=== PATIENT | male | born 1965 | race Caucasian/White ===

== ENCOUNTER → 2020-02-08 | Outpatient (CLI) | payer OTHER, SELFPAY ==
[2020-02-08 19:36] VITALS: BMI 36.5
[2020-02-08 21:23] LABS: Absolute Lymphocyte Count 2.88 X10^3/uL (0.83-4.51); Absolute Neutrophil Count 7.7 X10^3/uL (2.0-7.7); Basophil# 0.07 X10^3/uL; Basophil% 0.6 % (0-1); Eosinophil# 0.58 X10^3/uL; Eosinophils% 4.6 % (0-5); Hematocrit 54.4 % (40-54); Hemoglobin 17.8 g/dL (13.0-16.5); Lymphocyte # 2.88 X10^3/ul (4.0); Lymphocyte % 22.7 % (19-41); Mean Corp Hgb Conc 32.7 g/dL (32-36); Mean Corpuscular Volume 91.7 fL (80-94); Mean Platelet Vol. 10.7 fl (6.2-12.0); Monocyte# 1.44 X10^3/uL; Monocyte% 11.3 % (0-10); NRBC Flagged by Analyzer 0 % (0-5); Neutrophil # 7.68 X10^3/uL (2.7-7.7); Neutrophil % 60.4 % (47-70); Platelet Count 264 K/mm3 (150-450); RBC Distribution Width CV 13.7 % (11.6-14.6); Red Blood Count 5.93 M/mm3 (4.6-6.2); White Blood Count 12.7 K/mm3 (4.4-11.0)
[2020-02-08 21:45] LABS: ALB/GLOB Ratio 1.1 RATIO (0.9-2.4); AST(SGOT) 36 U/L (15-37); Alanine Aminotransfer ALT/SGPT 53 U/L (16-61); Albumin, Serum 4.2 g/dL (3.2-5.0); Alkaline Phosphatase 44 U/L (45-117); Anion Gap 5 (5-15); BUN 19 mg/dL (7-18); BUN/Creat Ratio 15.7 RATIO (10-20); Calcium,Total 9.3 mg/dL (8.5-10.1); Chloride 103 mmol/L (98-107); Cholesterol 132 mg/dL (200); Creatinine, Serum 1.21 mg/dL (0.70-1.30); EST Glomerular Filtration Rate 66 mL/min (>60); Est Glom Filt Rate - Afr Amer 80 mL/min (>60); Globulin 3.8 g/dL (2.2-4.2); Glucose 85 mg/dL (74-106); High Density Lipoprotein 44 mg/dL; Sodium Level 137 mmol/L (136-145); Triglycerides 136 mg/dL; Very Low Density Lipoprotein 27 mg/dL (5-40)
== END | disposition home or self-care (01) ==
PROVIDERS: PCP Nurse Practitioner; Referring Provider Nurse Practitioner; Visit Provider Nurse Practitioner
DX: I10 Essential (primary) hypertension (principal); E78.00 Pure hypercholesterolemia, unspecified
CPT/HCPCS: 80053; 80061; 85025

== ENCOUNTER → 2023-11-25 | Outpatient (CLI) | payer OTHER, SELFPAY ==
[2023-11-25 20:47] LABS: Absolute Lymphocyte Count 2.74 X10^3/uL (0.83-4.51); Absolute Neutrophil Count 4.8 X10^3/uL (2.0-7.7); Basophil# 0.09 X10^3/uL; Eosinophil# 0.35 X10^3/uL; Hematocrit 45.6 % (40-54); Hemoglobin 15.2 g/dL (13.0-16.5); Lymphocyte # 2.74 X10^3/ul (0.83-4.51); Lymphocyte % 31.4 % (19-41); Mean Corp Hgb Conc 33.3 g/dL (32-36); Mean Corpuscular Hgb 30.3 pg (27.0-32.0); Mean Platelet Vol. 11.3 fl (6.2-12.0); Monocyte# 0.76 X10^3/uL; Monocyte% 8.7 % (0-10); NRBC Flagged by Analyzer 0 % (0-5); Neutrophil # 4.75 X10^3/uL (2.7-7.7); Neutrophil % 54.6 % (47-70); Platelet Count 263 K/mm3 (150-450); RBC Distribution Width CV 13.1 % (11.6-14.6); RBC Distribution Width SD 43.3 fl (35.1-43.9); Red Blood Count 5.01 M/mm3 (4.6-6.2); White Blood Count 8.7 K/mm3 (4.4-11.0)
[2023-11-25 21:06] LABS: AST(SGOT) 34 U/L (15-37); Alanine Aminotransfer ALT/SGPT 56 U/L (16-61); Albumin, Serum 3.8 g/dL (3.2-5.0); Alkaline Phosphatase 52 U/L (45-117); Anion Gap 7 (5-15); BUN 14 mg/dL (7-18); BUN/Creat Ratio 13.6 RATIO (10-20); Calcium,Total 8.9 mg/dL (8.5-10.1); Chloride 108 mmol/L (98-107); Cholesterol 157 mg/dL (200); Creatinine, Serum 1.03 mg/dL (0.70-1.30); EST Glomerular Filtration Rate 79 mL/min (>60); Est Glom Filt Rate - Afr Amer 95 mL/min (>60); Globulin 3.7 g/dL (2.2-4.2); Glucose 129 mg/dL (74-106); High Density Lipoprotein 40 mg/dL; PSA,Total - Annual Screen 1.33 ng/mL (0.00-4.00); Protein, Total 7.5 g/dL (6.4-8.2); Sodium Level 141 mmol/L (136-145); Triglycerides 149 mg/dL; Very Low Density Lipoprotein 30 mg/dL (5-40)
== END | disposition home or self-care (01) ==
PROVIDERS: PCP Nurse Practitioner; Referring Provider Nurse Practitioner; Visit Provider Nurse Practitioner
DX: Z00.00 Encounter for general adult medical examination without abnormal findings (principal)
CPT/HCPCS: 80053; 80061; 84153; 85025; G0103

== ENCOUNTER → 2025-01-06 | Outpatient (CLI) | payer OTHER, SELFPAY ==
--- OUTSIDE RECORDS SUMMARY | 2025-01-06 22:33 | XMS RPT_ITS | CCD ---
Author Organization [facility] Inform ion Partnership [facility] Care Team Providers Care Site Supervisor Name Role Phone Vincent Muro MD Unavailable José Antonio Ramos Unavailable Unavailable Zan Herrera Unavailable Unavailable Zan Herrera Unavailable Unavailable Zan Herrera Primary Care Provider Zan Herrera MD Primary Care Provider PROVIDER, UNKNOWN Admitting Unavailable PROVIDER, UNKNOWN Attending Unavailable ZAN HERRERA Primary Care Unavailable Zan Herrera MD Primary Care Provider PROVIDER, UNKNOWN Attending Unavailable ZAN HERRERA Primary Care Unavailable Zan Herrera Primary Care Provider ANNE-MARIE LUJAN Referring Unavailable ZAN HERRERA Primary Care Unavailable Anne-Marie Lujan Attending Unavailable Anne-Marie Lujan Primary Care Unavailable Anne-Marie Lujan Referring Unavailable Zan Herrera MD Primary Care Provider Unavailable Primary Care Provider Unavaildashawn Lujan NP-Anne-Marie Lee Primary Care Provider Franco ABSTRACTER-CAnne-Marie Attending Provider Franco RODGERS-Anne-Marie Lee Referring Provider Medications Current Medications Medication Drug Class(es) Dates Sig (Normalized) Sig (Original) [id number] 200 actuat albuterol 0.09 mg/actuat metered dose inhaler (3 sources) beta2-Adrenergic Agonist Start: 02-08-2020 Albuterol Sulfate (Proair Hfa) 90 mcg/actuation HFA aerosol inhaler Active 2 NMA INHALATION EVERY 6 HOURS as needed February 08, 2020 12:00am Start: 09-05-2018 take 2 puff(s) by in halation every four hours as needed albuterol HFA (PROAIR HFA) 90 mcg/actuation inhaler Indications: Sinobronchitis Inhale 2 Puffs as instructed every 4 hours as needed. 1 Inhaler 0 09/05/2018 Active Start: 05-09-2015 PROAIR HFA 108 (90 BASE) MCG/ACT inhaler every 4 hours as needed 0 05/09/2015 Active amoxicillin 875 mg / clavulanate 125 mg oral tablet (4 sources) Penicillin-class Antibacterial Start: 10-05-2024 Amoxicillin-Pot Clavulanate 875-125 mg tablet Active 1 {tbl} PO TWICE A DAY October 05, 2024 12:00am Start: 12-19-2021 take 1 tablet by billie th twice daily amoxicillin-clavulanate (Augmentin) 875-125 MG per tablet Indications: Cellulitis of left eyelid Take 1 Tablet by mouth 2 times daily. 20 Tablet 12/19/2021 Active benzonatate 200 mg oral capsule (1 source) Non-narcotic Antitussive Start: 09-22-2018 take 1 capsule by mouth three times daily as needed for cough Benzonatate 200 mg capsule Indications: Bronchitis Take 1 capsule by mouth three times daily as needed for Cough. 30 capsule 0 09/22/2018 Active fluticasone propionate 0.05 mg/actuat metered dose nasal spray (6 sources) Corticosteroid Start: 11-25-2023 Fluticasone Propionate 50 mcg/actuation spray,suspension Active 1 NMA INTRANASAL TWICE A DAY November 25, 2023 12:00am administer into each nostril Start: 07-25-2021 take 1 spray(s) nasa l route once daily fluticasone (FLONASE) 50 mcg/act nasal inhaler Use 1 [place] in each nostril daily. 16 g 3 07/25/2021 Active Start: 07-07-2019 End: 10-05-2019 fluticasone (FLONASE) 50 MCG /ACT nasal spray 1 spray by Nasal route daily 3 Bottle 13 07/07/2019 10/05/2019 Active gentamicin 3 mg/ml ophthalmic solution (3 sources) Start: 12-19-2021 take 1 drop(s) into the eye(s) every four hours gentamicin (GARAMYCIN) 0.3 % ophthalmic solution Indications: Cellulitis of left eyelid Place 1 Drop in the left eye every 4 hours. 1 mL 12/19/2021 Active hydroCHLOROthiazide 12.5 mg oral tablet (8 sources) Thiazide Diuretic Start: 02-08-2020 End: 03-07-2021 take 1 tablet by mouth once daily Hydrochlorothiazide 12.5 mg tablet Active 0 .ROUTE .COMPLEX March 07, 2021 8:27pm TAKE 1 TABLET BY MOUTH EVERY DAY Start: 05-25-2019 take 1 tablet by billie th once daily in the morning hydrochlorothiazide (HYDRODIURIL) 12.5 MG tablet Take 1 tablet by mouth every morning 90 tablet 1 05/25/2019 Active hydroCHLOROthiazide 12.5 mg / losartan potassium 100 mg oral tablet (8 sources) Thiazide Diuretic, Angiotensin 2 Receptor Tomasa Start: 04-08-2023 take 1 tablet by mouth once daily losartan-hydrochlorothiazide (HYZAAR) 100-12.5 MG per tablet TAKE 1 TABLET BY MOUTH EVERY DAY 90 Tablet 3 04/08/2023 Active Start: 02-28-2021 End: 03-07-2022 take 1 tablet by mouth once daily losartan-hydrochlorothiazide (HYZAAR) 100-12.5 MG per tablet TAKE 1 TABLET BY MOUTH EVERY DAY 90 Tablet 3 03/07/2022 Active Start: 04-26-2019 take 1 tablet by billie th once daily losartan-hydrochlorothiazide (HYZAAR) 100-12.5 MG per tablet Take 1 tablet by mouth daily 90 tablet 3 04/26/2019 Active Start: 07-29-2016 LOSARTAN POTAS SIUM-HCTZ 50-12.5 MG TABS takes 1 tablet once daily LOSARTAN POTASSIUM-HCTZ [id number] Angle Callejas LPN Start: 06-18-2016 take 1 tablet by billie th once daily losartan-hydrochlorothiazide (HYZAAR) 10 0-25 mg per tablet Take 1 tablet by mouth once daily. 0 06/18/2016 Active ibuprofen 600 mg oral tablet (1 source) Nonsteroidal Anti-inflammatory Drug Start: 01-20-2018 take 1 tablet by mouth every six hours as needed for pain ibuprofen (IBU) 600 MG tablet Take 1 tablet by mouth every 6 hours as needed for Pain 30 tablet 0 01/20/2018 Active losartan potassium 100 mg oral tablet (8 sources) Angiotensin 2 Receptor Tomasa Start: 02-08-2020 End: 03-07-2021 take 1 tablet by mouth once daily Losartan 100 mg tablet Active 0 .ROUTE .COMPLEX March 07, 2021 8:25pm TAKE 1 TABLET BY MOUTH EVERY DAY Start: 05-25-2019 take 1 tablet by billie once daily losartan (COZAAR) 100 MG tablet Take 1 tablet by mouth daily 90 tablet 1 05/25/2019 Active metFORMIN hydrochloride 500 mg oral tablet (1 source) Biguanide Start: 04-23-2018 take 1 tablet by mouth twice daily at mealtime metFORMIN (GLUCOPHAGE) 500 MG tablet Take 1 tablet by mouth 2 times daily (with meals) 180 tablet 3 04/23/2018 Active 24 hr metoprolol succinate 50 mg extended release oral tablet (1 source) beta-Adrenergic Tomasa Start: 11-25-2023 take 1 tablet by mouth once daily Metoprolol Succinate 50 mg tablet extended release 24 hr Active 50 mg PO daily November 25, 2023 12:00am testosterone undecanoate 237 mg oral capsule (4 sources) Androgen Start: 09-19-2020 take 1 capsule by mouth twice daily Testosterone Undecanoate (Jatenzo) 237 MG CAPS Indications: Hypogonadism male Take 237 mg by mouth 2 times daily. 60 Capsule 5 09/19/2020 Active Completed/Discontinued Medications Medication Drug Class(es) Dates Sig (Normalized) Sig (Original) bacitracin 0.5 unt/mg ophthalmic ointment (1 source) Start: 12-19-2020 End: 08-01-2022 Bacitracin 500 unit/gram ointment Discontinued 0.25 [in_us] OPHTHALMIC Q12H 3.5 December 19, 2020 12:00am August 01, 2022 7:40pm cefuroxime 500 mg oral tablet (1 source) Cephalosporin Antibacterial Start: 08-01-2022 End: 11-25-2023 take 1 tablet by mouth twice daily Cefuroxime Axetil 500 mg tablet Discontinued 500 mg PO TWICE A DAY August 01, 2022 12:00am November 25, 2023 4:49pm dapagliflozin 10 mg oral tablet (1 source) Sodium-Glucose Cotransporter 2 Inhibitor Start: 03-07-2020 End: 12-05-2020 take 1 tablet by mouth once daily in the morning Dapagliflozin Propanediol (Farxiga) 10 mg tablet Discontinued 10 mg PO EVERY MORNING March 07, 2020 1:00am December 05, 2020 7:48pm erythromycin 0.005 mg/mg ophthalmic ointment (1 source) Macrolide, Macrolide Antimicrobial Start: 12-05-2020 End: 08-01-2022 Erythromycin 5 mg/gram (0.5 %) ointment Discontinued 0.5 [in_us] OPHTHALMIC THREE TIMES A DAY 3.5 December 05, 2020 12:00am August 01, 2022 7:40pm linaclotide 0.072 mg oral capsule (3 sources) Guanylate Cyclase-C Agonist Start: 03-07-2020 End: 08-01-2022 take 1 capsule by mouth once daily Linaclotide (Linzess) 72 mcg capsule Discontinued 72 ug PO DAILY March 07, 2020 1:00am August 01, 2022 7:41pm Start: 02-08-2020 End: 02-08-2020 take 1 capsule by mouth once daily Linaclotide (Linzess) 145 mcg capsule Discontinued 145 ug PO DAILY February 08, 2020 7:45pm February 08, 2020 7:55pm [facility] [employer] (1 source) Start: 02-03-2017 OSTEO BI-FLEX JOINT SHIELD TABS once daily [facility] [employer] [id number] Vincent Muro MD NAPROXEN SODIUM TABS (1 source) Nonsteroidal Anti-inflammatory Drug Start: 07-03-2017 ALEVE TABS take 1 tablet as needed NAPROXEN SODIUM TABS [id number] Vincent Muro MD pimecrolimus 10 mg/ml topical cream (1 source) Calcineurin Inhibitor Immunosuppressant Start: 02-08-2020 End: 08-01-2022 Pimecrolimus (Elidel) 1 % cream Discontinued 1 NMA TOPICAL TWICE A DAY February 08, 2020 12:00am August 01, 2022 7:42pm terbinafine 250 mg oral tablet (2 sources) Allylamine Antifungal Start: 11-25-2023 End: 10-05-2024 take 1 tablet by mouth once daily Terbinafine Hcl 250 mg tablet Discontinued 250 mg PO DAILY November 25, 2023 4:52pm October 05, 2024 5:12pm triamcinolone acetonide 5 mg/ml topical cream (1 source) Corticosteroid Start: 02-08-2020 End: 08-01-2022 Triamcinolone Acetonide 0.5 % cream Discontinued 1 NMA TOPICAL TWICE A DAY February 08, 2020 12:00am August 01, 2022 7:42pm Problems Active Problems Problem Classification Problem Date Documented Date Episodic/Chronic Calculus of urinary tract (1 source) Calculus of ureter; Translations: [Ureteral stone] Onset: 10-07-2022 Episodic Diverticulosis and diverticulitis (1 source) Diverticulitis of large intestine without perforation or abscess without bleeding; Translations: [Sigmoid diverticulitis] Onset: 10-07-2022 Chronic Essential hypertension (7 sources) Hypertensive disorder; Translations: [Essential hypertension] Onset: 04-22-2016 07-29-2016 Chronic External Injury - Struck by; against (2 sources) Striking against or struck by other objects, initial encounter; Translations: [Striking against or struck by other objects, init encntr] Onset: 01-20-2018 Fracture of lower limb (2 sources) Nondisplaced unspecified fracture of right lesser toe(s), initial encounter for closed fracture; Translations: [Nondisplaced unsp fracture of right lesser toe(s), init] Onset: 01-20-2018 Episodic Inflammation; infection of eye (except that caused by tuberculosis or sexually transmitteddisease) (1 source) External hordeolum; Translations: [Hordeolum externum unspecified eye, unspecified eyelid] 12-19-2020 Episodic Other connective tissue disease (1 source) Impingement syndrome of right shoulder region; Translations: [Impingement syndrome of right shoulder] Onset: 07-01-2015 07-01-2015 Other diseases of kidney and ureters (1 source) Unspecified hydronephrosis; Translations: [Hydronephrosis, unspecified hydronephrosis type] Onset: 10-07-2022 Episodic Other endocrine disorders (2 sources) Testicular hypofunction; Translations: [Testicular hypofunction] Onset: 01-20-2018 Chronic Other endocrine disorders (4 sources) Male hypogonadism; Translations: [Testicular hypofunction] Onset: 07-01-2015 07-01-2015 Chronic Other endocrine disorders (1 source) Other testicular hypofunction Onset: 07-01-2015 09-13-2020 Chronic Other eye disorders (1 source) Chalazion of right upper eyelid; Translations: [Chalazion right upper eyelid] 12-19-2020 Episodic Other injuries and conditions due to external causes (2 sources) Unspecified injury of right foot, initial encounter; Translations: [Unspecified injury of right foot, initial encounter] Onset: 01-20-2018 Episodic Other lower respiratory disease (1 source) Shortness of breath; Translations: [Shortness of breath] Onset: 12-01-2023 Episodic Other lower respiratory disease (1 source) Dyspnea; Translations: [Shortness of breath] 11-25-2023 Episodic Other nutritional; endocrine; and metabolic disorders (1 source) Obesity; Translations: [Obesity, unspecified] Onset: 07-29-2016 07-29-2016 Chronic Other upper respiratory infections (2 sources) Acute maxillary sinusitis; Translations: [Acute maxillary sinusitis, unspecified] 08-01-2022 Episodic Unclassified (6 sources) History of repair of musculotendinous cuff of shoulder; Translations: [History of arthroscopic procedure on shoulder] Onset: 03-20-2017 05-22-2017 Episodic Past or Other Problems Problem Classification Problem Date Documented Da te Episodic/Chronic Diabetes mellitus without complication (5 sources) Impaired fasting glycaemia; Translations: [Impaired fasting glucose] Onset: 07-01-2015 07-01-2015 Episodic Headache; including migraine (1 source) Tension-type headache; Translations: [Tension headache] Onset: 07-01-2015 07-01-2015 Episodic Other aftercare (5 sources) Patient encounter status; Translations: [Other outsole splicer (current) drug therapy] Onset: 09-13-2020 09-13-2020 Episodic Other aftercare (1 source) Long-term current use of drug therapy; Translations: [Other outsole splicer (current) drug therapy] Onset: 09-13-2020 09-13-2020 Episodic Other aftercare (1 source) Long-term (current) use of other medications Onset: 09-13-2020 09-13-2020 Episodic Other lower respiratory disease (2 sources) Chronic cough; Translations: [Chronic cough] Onset: 09-11-2015 04-22-2016 Episodic Other non-traumatic joint disorders (1 source) Impingement syndrome of shoulder region; Translations: [Impingement syndrome of left shoulder] Onset: 02-03-2017 02-03-2017 Episodic Other screening for suspected conditions (not mental disorders or infectious disease) (1 source) Screening for malignant neoplasms of prostate Onset: 09-13-2020 09-13-2020 Episodic Sprains and strains (1 source) Glenoid labrum tear; Translations: [Other articular cartilage disorders, unspecified shoulder] Onset: 08-19-2016 08-19-2016 Episodic Unclassified (1 source) Problem Unclassified (1 source) Patient encounter status; Translations: [Screening for malignant neoplasm of prostate] Onset: 04-23-2018 Resolved: 05-23-2018 05-23-2018 Unclassified (1 source) L shoulder torn labrum 12-04-2021 Results Test Name Value Interpretation Reference Range Facility XR CHEST 2V FRONTAL/LATon XR CHEST 2V FRONTAL/LAT * * *Final Report* * * DATE OF EXAM: Dec 01 2023 12:14PM LDX 5291 - XR CHEST 2V FRONTAL/LAT / PROCEDURE REASON: R06.02 Cough * * * * Physician Interpretation * * * * EXAMINATION: CHEST RADIOGRAPH (2 VIEW FRONTAL and LATERAL) CLINICAL HISTORY: Cough MQ: XC2_6 EXAM DATE/TIME: 12/01/2023 12:14 PM COMPARISON: No relevant prior studies available. RESULT: Lines, tubes, and devices: None. Lungs and pleura: No consolidation. No lung mass. No pleural effusion. No pneumothorax. Cardiomediastinal silhouette: Normal cardiomediastinal silhouette. Bones and soft tissues: Unremarkable. IMPRESSION: No acute radiographic abnormality. Delinquent Tax Collector: SHAMA Transcribe Date/Time: Dec 01 2023 1:16P Dictated by : JIM ROCHA MD This examination was interpreted and the report reviewed and electronically signed by: JIM ROCHA MD on Dec 01 2023 1:16PM EST [id number] Normal [facility] XR Chest PA and Lateralon IMPRESSION: No acute radiographic abnormality. Delinquent Tax Collector: PSCJemal Transcribe Date/Time: Dec 01 2023 1:16P Dictated by : JIM ROCHA MD This examination was interpreted and the report reviewed and electronically signed by: JIM ROCHA MD on Dec 01 2023 1:16PM EST [facility] * * *Final Report* * * DATE OF EXAM: Dec 01 2023 12:14PM LDX 5291 - XR CHEST 2V FRONTAL/LAT / PROCEDURE REASON: R06.02 Cough * * * * Physician Interpretation * * * * EXAMINATION: CHEST RADIOGRAPH (2 VIEW FRONTAL & LATERAL) CLINICAL HISTORY: Cough MQ: XC2_6 EXAM DATE/TIME: 12/01/2023 12:14 PM COMPARISON: No relevant prior studies available. RESULT: Lines, tubes, and devices: None. Lungs and pleura: No consolidation. No lung mass. No pleural effusion. No pneumothorax. Cardiomediastinal silhouette: Normal cardiomediastinal silhouette. Bones and soft tissues: Unremarkable. [facility] Provider, [facility] - 12/01/2023 * * *Final Report* * * DATE OF EXAM: Dec 01 2023 12:14PM LDX 5291 - XR CHEST 2V FRONTAL/LAT / PROCEDURE REASON: R06.02 Cough * * * * Physician Interpretation * * * * EXAMINATION: CHEST RADIOGRAPH (2 VIEW FRONTAL & LATERAL) CLINICAL HISTORY: Cough MQ: XC2_6 EXAM DATE/TIME: 12/01/2023 12:14 PM COMPARISON: No relevant prior studies available. RESULT: Lines, tubes, and devices: None. Lungs and pleura: No consolidation. No lung mass. No pleural effusion. No pneumothorax. Cardiomediastinal silhouette: Normal cardiomediastinal silhouette. Bones and soft tissues: Unremarkable. IMPRESSION IMPRESSION: No acute radiographic abnormality. Delinquent Tax Collector: PSCB Transcribe Date/Time: Dec 01 2023 1:16P Dictated by : JIM ROCHA MD This examination was interpreted and the report reviewed and electronically signed by: JIM ROCHA MD on Dec 01 2023 1:16PM EST [facility] Radiology Study observation (narrative) [facility] XR Chest PA and LateralOrder ed By: Ccf Provider on 12-01-2023 [facility] CBC W/Diff, Automatedon 11-03 Absolute Lymph 2.74 X10 3/uL Normal 0.83-4.51 [facility] Comment on above: Performed By: #### L 500.4050, L501.9910, L500.4100, L100.0100 #### [facility] [address] [place], [address] Absolute Neut 4.8 X10 3/uL Normal 2.0-7.7 [facility] Comment on above: Performed By: #### L 500.4050, L501.9910, L500.4100, L100.0100 #### [facility] [address] [place], [address] Basophils/100 WBC (Bld) 1.0 % Normal 0-1 [facility] Comment on above: Performed By: #### L 500.4050, L501.9910, L500.4100, L100.0100 #### [facility] [address] [place], [address] Eosinophils/100 WBC (Bld) 4.0 % Normal 0-5 [facility] Comment on above: Performed By: #### L 500.4050, L501.9910, L500.4100, L100.0100 #### [facility] [address] [place], [address] Erythrocyte distribution width (RBC) [Ratio] 13.1 % Normal 11.6-14.6 [facility] Comment on above: Performed By: #### L 500.4050, L501.9910, L500.4100, L100.0100 #### [facility] [address] [place], [address] Hematocrit (Bld) [Volume fraction] 45.6 % Normal 40-54 [facility] Comment on above: Performed By: #### L 500.4050, L501.9910, L500.4100, L100.0100 #### [facility] [address] [place], [address] Hemoglobin (Bld) [Mass/Vol] 15.2 g/dL Normal 13.0-16.5 [facility] Comment on above: Performed By: #### L 500.4050, L501.9910, L500.4100, L100.0100 #### [facility] [address] [place], [address] IG% 0.300 Normal 0.0-0.9 [facility] Comment on above: Result Comment: IG% - Immature Granulocytes (promyelocytes, myelocytes and metamyelocytes) > 1% indicates that a LEFT SHIFT is Present. Performed By: #### L 500.4050, L501.9910, L500.4100, L100.0100 #### [facility] [address] [place], [address] Lymphocytes/100 WBC (Bld) 31.4 % Normal 19-41 [facility] Comment on above: Performed By: #### L 500.4050, L501.9910, L500.4100, L100.0100 #### [facility] [address] [place], [address] MCH (RBC) [Entitic mass] 30.3 pg Normal 27.0-32.0 [facility] Comment on above: Performed By: #### L 500.4050, L501.9910, L500.4100, L100.0100 #### [facility] [address] [place], [address] MCHC (RBC) [Mass/Vol] 33.3 g/dL Normal 32-36 [facility] Comment on above: Performed By: #### L 500.4050, L501.9910, L500.4100, L100.0100 #### [facility] [address] [place], [address] MCV (RBC) [Entitic vol] 91.0 fL Normal 80-94 [facility] Comment on above: Performed By: #### L 500.4050, L501.9910, L500.4100, L100.0100 #### [facility] [address] [place], [address] Monocytes/100 WBC (Bld) 8.7 % Normal 0-10 [facility] Comment on above: Performed By: #### L 500.4050, L501.9910, L500.4100, L100.0100 #### [facility] [address] [place], [address] Neutrophils/100 WBC (Bld) 54.6 % Normal 47-70 [facility] Comment on above: Performed By: #### L 500.4050, L501.9910, L500.4100, L100.0100 #### [facility] [address] [place], [address] Nucleated RBC (Bld) [#/Vol] 0 10*3/uL Normal 0-5 [facility] Comment on above: Performed By: #### L 500.4050, L501.9910, L500.4100, L100.0100 #### [facility] [address] [place], [address] Platelet mean volume (Bld) [Entitic vol] 11.3 fL Normal 6.2-12.0 [facility] Comment on above: Performed By: #### L 500.4050, L501.9910, L500.4100, L100.0100 #### [facility] [address] [place], [address] Platelets (Bld) [#/Vol] 263 10*3/uL Normal 150-450 [facility] Comment on above: Performed By: #### L 500.4050, L501.9910, L500.4100, L100.0100 #### [facility] [address] [place], [address] RBC (Bld) [#/Vol] 5.01 10*6/uL Normal 4.6-6.2 [facility] Comment on above: Performed By: #### L 500.4050, L501.9910, L500.4100, L100.0100 #### [facility] [address] [place], [address] RDW SD 43.3 fl Normal 35.1-43.9 [facility] Comment on above: Performed By: #### L 500.4050, L501.9910, L500.4100, L100.0100 #### [facility] [address] [place], [address] WBC (Bld) [#/Vol] 8.7 10*3/uL Normal 4.4-11.0 [facility] Comment on above: Performed By: #### L 500.4050, L501.9910, L500.4100, L100.0100 #### [facility] [address] [place], [address] Comprehensive Metabolic [facility] 11-25-2023 Albumin [Mass/Vol] 3.8 g/dL Normal 3.2-5.0 [facility] Comment on above: Performed By: #### L 500.4050, L501.9910, L500.4100, L100.0100 #### [facility] [address] [place], [address] Albumin/Globulin [Mass ratio] 1.0 {ratio} Normal 0.9-2.4 [facility] Comment on above: Performed By: #### L 500.4050, L501.9910, L500.4100, L100.0100 #### [facility] [address] [place], [address] ALK P 52 U/L Normal 45-117 [facility] Comment on above: Performed By: #### L 500.4050, L501.9910, L500.4100, L100.0100 #### [facility] [address] [place], [address] ALT [Catalytic activity/Vol] 56 U/L Normal 16-61 [facility] Comment on above: Performed By: #### L 500.4050, L501.9910, L500.4100, L100.0100 #### [facility] [address] [place], [address] AST [Catalytic activity/Vol] 34 U/L Normal 15-37 [facility] Comment on above: Performed By: #### L 500.4050, L501.9910, L500.4100, L100.0100 #### [facility] [address] [place], [address] Bilirubin [Mass/Vol] 0.40 mg/dL Normal 0.20-1.00 [facility] Comment on above: Result Comment: For patients on eltrombopag therapy, use of Dimension [place] TBIL is not recommended. Performed By: #### L 500.4050, L501.9910, L500.4100, L100.0100 #### [facility] [address] [place], [address] BUN/CRE 13.6 RATIO Normal 10-20 [facility] Comment on above: Performed By: #### L 500.4050, L501.9910, L500.4100, L100.0100 #### [facility] [address] [place], [address] CA,Total 8.9 mg/dL Normal 8.5-10.1 [facility] Comment on above: Performed By: #### L 500.4050, L501.9910, L500.4100, L100.0100 #### [facility] [address] [place], [address] Chloride [Moles/Vol] 108 mmol/L High 98-107 [facility] Comment on above: Performed By: #### L 500.4050, L501.9910, L500.4100, L100.0100 #### [facility] [address] [place], [address] CO2 [Moles/Vol] 26.0 mmol/L Normal 21.0-32.0 [facility] Comment on above: Performed By: #### L 500.4050, L501.9910, L500.4100, L100.0100 #### [facility] [address] [place], [address] Creatinine [Mass/Vol] 1.03 mg/dL Normal 0.70-1.30 [facility] Comment on above: Result Comment: The validity of the calculated GFR GFRAA in patients over 70 years has not been determined. Clinical correlation is essential. Performed By: #### L 500.4050, L501.9910, L500.4100, L100.0100 #### [facility] [address] [place], [address] EST GFR - AA 95 mL/min Normal >60 [facility] Comment on above: Result Comment: Afri can [place] GFR Calc Performed By: #### L 500.4050, L501.9910, L500.4100, L100.0100 #### [facility] [address] [place], [address] GAP 7 Normal 5-15 [facility] Comment on above: Performed By: #### L 500.4050, L501.9910, L500.4100, L100.0100 #### [facility] [address] [place], [address] GFR/1.73 sq M.predicted among non-blacks MDRD (S/P/Bld) [Vol rate/Area] 79 mL/min/{1.73_m2} Normal >60 [facility] Comment on above: Result Comment: Non- GFR Calc Performed By: #### L 500.4050, L501.9910, L500.4100, L100.0100 #### [facility] [address] [place], [address] Globulin (S) [Mass/Vol] 3.7 g/dL Normal 2.2-4.2 [facility] Comment on above: Performed By: #### L 500.4050, L501.9910, L500.4100, L100.0100 #### [facility] [address] [place], [address] Glucose [Mass/Vol] 129 mg/dL High 74-106 [facility] Comment on above: Result Comment: Fast ing Glucose result greater than or equal to 126 mg/dL suggests DIABETES MELLITUS per A.D.A. criteria. Performed By: #### L 500.4050, L501.9910, L500.4100, L100.0100 #### [facility] [address] [place], [address] Potassium [Moles/Vol] 4.0 mmol/L Normal 3.5-5.1 [facility] Comment on above: Performed By: #### L 500.4050, L501.9910, L500.4100, L100.0100 #### [facility] [address] [place], [address] Sodium [Moles/Vol] 141 mmol/L Normal 136-145 [facility] Comment on above: Performed By: #### L 500.4050, L501.9910, L500.4100, L100.0100 #### [facility] [address] [place], [address] T PROT 7.5 g/dL Normal 6.4-8.2 [facility] Comment on above: Performed By: #### L 500.4050, L501.9910, L500.4100, L100.0100 #### [facility] [address] [place], [address] Urea nitrogen [Mass/Vol] 14 mg/dL Normal 7-18 [facility] Comment on above: Performed By: #### L 500.4050, L501.9910, L500.4100, L100.0100 #### [facility] [address] [place], [address] Lipid Profileon 11-25-2023 Cholesterol [Mass/Vol] 157 mg/dL Normal 200 [facility] Comment on above: Result Comment: <200 mg/dL Desirable 200-240 mg/dL Borderline >240 mg/dL High Risk Performed By: #### L 500.4050, L501.9910, L500.4100, L100.0100 #### [facility] [address] [place], [address] Cholesterol in HDL [Mass/Vol] 40 mg/dL Normal [facility] Comment on above: Result Comment: The drugs N-Acetylcysteine and Metamizole may falsely depress this assay. Reference Range HDL <40 mg/dL Low HDL Cholesterol HDL >or= 60 mg/dL High HDL Cholesterol Performed By: #### L 500.4050, L501.9910, L500.4100, L100.0100 #### [facility] [address] [place], [address] Cholesterol in LDL [Mass/Vol] 87 mg/dL Normal 0-130 [facility] Comment on above: Performed By: #### L 500.4050, L501.9910, L500.4100, L100.0100 #### [facility] [address] [place], [address] Cholesterol in VLDL [Mass/Vol] 30 mg/dL Normal 5-40 [facility] Comment on above: Performed By: #### L 500.4050, L501.9910, L500.4100, L100.0100 #### [facility] [address] [place], [address] Triglyceride [Mass/Vol] 149 mg/dL Normal [facility] Comment on above: Result Comment: The drugs N-Acetylcysteine and Metamizole may falsely depress this assay. Serum Triglycerides Reference Interval Normal <150 mg/dL Borderline high 150 - 199 mg/dL High 200 - 499 mg/dL Very High > or = 500 mg/dL Performed By: #### L 500.4050, L501.9910, L500.4100, L100.0100 #### [facility] [address] [place], [place], [address] PSA,Total - Annual Screenon 11-25-2023 PSA,TOT SCREEN 1.33 ng/mL Normal 0.00-4.00 [facility] Comment on above: Result Comment: This test was performed using the TPSA assay method for the [employer] chemistry system. Values obtained with different assay methods cannot be used interchangably. When changing PSA assays in the course of monitoring a patient, additional sequential testing should be carried out to confirm baseline values. Performed By: #### L 500.4050, L501.9910, L500.4100, L100.0100 #### [facility] [address] [place], [place], [address] ALLIED HEALTHon 10-07-2022 [facility] O ID: [id number] Author: RAUL August Service: Radiology Author Type: Technologist Type: Allied Health Filed: 10/07/2022 12:20 PM Note Text: Radiology Service Progress Note PATIENT NAME: Zan Villeda DATE OF SERVICE: October 07, 2022 TIME: 12:20 PM PATIENT IDENTITY VERIFICATION COMPLETED USING TWO (2) IDENTIFIERS: Name and Date of confirmed by patient verbally and Name and Date of confirmed by identification band. FALL SCREENING: Has the patient had 2 falls in the last year or 1 fall with injury or currently using an Ambulatory Assistive Device (Walker, Cane, Wheelchair, Crutches, etc.)? Emergency Room Patient: Screened in ED PATIENT GENDER DATA: Male PATIENT RELEVANT IMPLANT DATA REVIEWED: Yes RADIOLOGY DEPARTMENT: CT; Exam(s) Completed: Abdomen/Pelvis PERIPHERAL IV DATA: Inpatient: see LDA documentation SIGNED BY: RAUL August October 07, 2022 12:20 PM Normal [facility] CBC W Auto Differential pane l (Bld)on 10-07-2022 Basophils (Bld) [#/Vol] 0.05 10*3/uL Normal <0.11 [facility] Comment on above: Order Comment: Speci men Type: BLOOD SPECIMEN Ordering Facility: [facility] Address: [address] [address] Performed By: #### 5 7021-8 #### [facility] CLIA [id number] [address] [place] [address] [place] Basophils/100 WBC (Bld) 0.5 % Normal [facility] Comment on above: Order Comment: Speci men Type: BLOOD SPECIMEN Ordering Facility: [facility] Address: [address] [place] [address] Performed By: #### 5 7021-8 #### [facility] CLIA [id number] [address] [place] Differential cell count method Nom (Bld) Auto Normal [facility] Comment on above: Order Comment: Speci men Type: BLOOD SPECIMEN Ordering Facility: [facility] Address: [address] [address] Performed By: #### 5 7021-8 #### [facility] CLIA [id number] [address] [place] Eosinophils (Bld) [#/Vol] 0.07 10*3/uL Normal <0.46 [facility] Comment on above: Order Comment: Speci men Type: BLOOD SPECIMEN Ordering Facility: [facility] Address: [address] [address] Performed By: #### 5 7021-8 #### [facility] CLIA [id number] [address] Eosinophils/100 WBC (Bld) 0.7 % Normal [facility] Comment on above: Order Comment: Speci men Type: BLOOD SPECIMEN Ordering Facility: [facility] Address: [address] [address] Performed By: #### 5 7021-8 #### [facility] CLIA [id number] [address] Erythrocyte distribution width (RBC) [Ratio] 13.1 % Normal 11.5-15.0 [facility] Comment on above: Order Comment: Speci men Type: BLOOD SPECIMEN Ordering Facility: [facility] Address: [address] [address] Performed By: #### 5 7021-8 #### [facility] CLIA [id number] [address] Hematocrit (Bld) [Volume fraction] 43.5 % Normal 39.0-51.0 [facility] Comment on above: Order Comment: Speci men Type: BLOOD SPECIMEN Ordering Facility: [facility] Address: [address] [place] [address] Performed By: #### 5 7021-8 #### [facility] CLIA [id number] [address] [place] Hemoglobin (Bld) [Mass/Vol] 14.3 g/dL Normal 13.0-17.0 [facility] Comment on above: Order Comment: Speci men Type: BLOOD SPECIMEN Ordering Facility: [facility] Address: [address] [place] [address] Performed By: #### 5 7021-8 #### [facility] CLIA [id number] [address] Immature granulocytes (Bld) [#/Vol] 0.03 10*3/uL Normal <0.10 [facility] Comment on above: Order Comment: Speci men Type: BLOOD SPECIMEN Ordering Facility: [facility] Address: [address] [address] Performed By: #### 5 7021-8 #### [facility] CLIA [id number] [address] Immature granulocytes/100 WBC (Bld) 0.3 % Normal [facility] Comment on above: Order Comment: Speci men Type: BLOOD SPECIMEN Ordering Facility: [facility] Address: [address] [address] Performed By: #### 5 7021-8 #### [facility] CLIA [id number] [address] [place] Lymphocytes (Bld) [#/Vol] 1.30 10*3/uL Normal 1.00-4.00 [facility] Comment on above: Order Comment: Speci men Type: BLOOD SPECIMEN Ordering Facility: [facility] Address: [address] [address] Performed By: #### 5 7021-8 #### [facility] CLIA [id number] [address] Lymphocytes/100 WBC (Bld) 13.5 % Normal [facility] Comment on above: Order Comment: Speci men Type: BLOOD SPECIMEN Ordering Facility: [facility] Address: [address] [place] [address] Performed By: #### 5 7021-8 #### [facility] CLIA [id number] [address] MCH (RBC) [Entitic mass] 31.1 pg Normal 26.0-34.0 [facility] Comment on above: Order Comment: Speci men Type: BLOOD SPECIMEN Ordering Facility: [facility] Address: [address] [place] [address] Performed By: #### 5 7021-8 #### [facility] CLIA [id number] [address] MCHC (RBC) [Mass/Vol] 32.9 g/dL Normal 30.5-36.0 [facility] Comment on above: Order Comment: Speci men Type: BLOOD SPECIMEN Ordering Facility: [facility] Address: [address] [address] Performed By: #### 5 7021-8 #### [facility] CLIA [id number] [address] MCV (RBC) [Entitic vol] 94.6 fL Normal 80.0-100.0 [facility] Comment on above: Order Comment: Speci men Type: BLOOD SPECIMEN Ordering Facility: [facility] Address: [address] [place] [address] Performed By: #### 5 7021-8 #### [facility] CLIA [id number] [address] [place] [address] [place] Monocytes (Bld) [#/Vol] 0.54 10*3/uL Normal <0.87 [facility] Comment on above: Order Comment: Speci men Type: BLOOD SPECIMEN Ordering Facility: [facility] Address: [address] [address] Performed By: #### 5 7021-8 #### [facility] CLIA [id number] [address] [place] Monocytes/100 WBC (Bld) 5.6 % Normal [facility] Comment on above: Order Comment: Speci men Type: BLOOD SPECIMEN Ordering Facility: [facility] Address: [address] [place] [address] Performed By: #### 5 7021-8 #### [facility] CLIA [id number] [address] [place] [address] [place] Neutrophils (Bld) [#/Vol] 7.67 10*3/uL High 1.45-7.50 [facility] Comment on above: Order Comment: Speci men Type: BLOOD SPECIMEN Ordering Facility: [facility] Address: [address] [place] [address] Performed By: #### 5 7021-8 #### [facility] CLIA [id number] [address] [place] Neutrophils/100 WBC (Bld) 79.4 % Normal [facility] Comment on above: Order Comment: Speci men Type: BLOOD SPECIMEN Ordering Facility: [facility] Address: [address] [address] Performed By: #### 5 7021-8 #### [facility] CLIA [id number] [address] [place] Nucleated RBC (Bld) [#/Vol] 10*3/uL Normal <0.01 [facility] Comment on above: Order Comment: Speci men Type: BLOOD SPECIMEN Ordering Facility: [facility] Address: [address] [place] [address] Performed By: #### 5 7021-8 #### [facility] CLIA [id number] [address] [place] Nucleated RBC/100 WBC (Bld) [Ratio] 0.0 /100 WBC Normal [facility] Comment on above: Order Comment: Speci men Type: BLOOD SPECIMEN Ordering Facility: [facility] Address: [address] [place] [address] Performed By: #### 5 7021-8 #### [facility] CLIA [id number] [address] [place] Platelet mean volume (Bld) [Entitic vol] 10.4 fL Normal 9.0-12.7 [facility] Comment on above: Order Comment: Speci men Type: BLOOD SPECIMEN Ordering Facility: [facility] Address: [address] [place] [address] Performed By: #### 5 7021-8 #### [facility] CLIA [id number] [address] Platelets (Bld) [#/Vol] 220 10*3/uL Normal 150-400 [facility] Comment on above: Order Comment: Speci men Type: BLOOD SPECIMEN Ordering Facility: [facility] Address: [address] [place] [address] Performed By: #### 5 7021-8 #### [facility] CLIA [id number] [address] RBC (Bld) [#/Vol] 4.60 10*6/uL Normal 4.20-6.00 [facility] Comment on above: Order Comment: Speci men Type: BLOOD SPECIMEN Ordering Facility: [facility] Address: [address] [place] [address] Performed By: #### 5 7021-8 #### [facility] CLIA [id number] [address] WBC (Bld) [#/Vol] 9.66 10*3/uL Normal 3.70-11.00 [facility] Comment on above: Order Comment: Speci men Type: BLOOD SPECIMEN Ordering Facility: [facility] Address: [place] [address] Performed By: #### 5 7021-8 #### [facility] CLIA [id number] [address] [place] [address] [place] [address] ABD/PEL WO IVCONon 2022 CT ABD/PEL WO IVCON * * *Final Report* * * DATE OF EXAM: Oct 07 2022 12:19PM [facility] [place] CT ABD/PEL WO IVCON / PROCEDURE REASON: Flank pain, kidney stone suspected * * * * Physician Interpretation * * * * EXAMINATION: CT ABDOMEN AND PELVIS WITHOUT IV CONTRAST CLINICAL HISTORY: Flank pain, renal calculus suspected. TECHNIQUE: Non-IV contrast imaging of the abdomen and pelvis was performed using standard technique, scanning from just above the dome of the diaphragm to the symphysis pubis. Unenhanced imaging is limited for the evaluation of some intra-abdominal and pelvic pathology. MQ: CTAPWO_3 Contrast: IV: None : ml of CT Radiation dose: Integrated Dose-length product (DLP) for this visit = 640 mGy*cm. CT Dose Reduction Employed: Automated exposure control (AEC) COMPARISON: None. RESULT: Abdomen / Pelvis: Liver: Hepatic steatosis. Biliary: No biliary dilatation. Gallbladder is unremarkable. Spleen: No splenomegaly. Pancreas: Unremarkable. Adrenals: No mass. Kidneys: The 0.5 cm calculus is seen in the region of the mid right ureter, however this is not definitely within the ureter. There is right-sided hydronephrosis with surrounding inflammatory change. Findings may be related to obstruction, infectious process not excluded. Left kidney appears within normal limits. GI Tract: No bowel dilation. Colonic diverticulosis without inflammation surrounding the sigmoid: Suspicious for diverticulitis. Lymph Nodes: No lymphadenopathy. Mesentery/peritoneum: No ascites. Retroperitoneum: No mass. Vasculature: No abdominal aortic or iliac artery aneurysm. Pelvis: No mass or ascites. Bones/Soft Tissues: No acute abnormality. Lower thorax: Unremarkable. Real Estate Accountant (topogram) images: No additional findings. IMPRESSION: Diverticulitis of the sigmoid colon. Right renal hydronephrosis with surrounding inflammation. There is a 5 mm calculus in the region of the proximal to mid right ureter which appears to likely lie outside the ureter. Obstruction is not excluded. Infectious process considered. Clinical correlation is needed. Delinquent Tax Collector: PSCJemal Transcribe Date/Time: Oct 07 2022 12:26P Dictated by : LUI YOON MD This examination was interpreted and the report reviewed and electronically signed by: LUI YOON MD on Oct 07 2022 12:37PM EST [id number] Normal [facility] Comprehensive metabolic 2000 panelon 10-07-2022 Albumin [Mass/Vol] 4.0 g/dL Normal 3.9-4.9 [facility] Comment on above: Order Comment: Speci men Type: BLOOD SPECIMEN Ordering Facility: [facility] Address: [address] [place] [address] Performed By: #### 2 4323-8 #### [facility] CLIA [id number] [address] [place] [facility] ALP [Catalytic activity/Vol] 40 U/L Normal 38-113 [facility] Comment on above: Order Comment: Speci men Type: BLOOD SPECIMEN Ordering Facility: [facility] Address: [address] [address] Performed By: #### 2 4323-8 #### [facility] CLIA [id number] [address] ALT [Catalytic activity/Vol] 39 U/L Normal 10-54 [facility] Comment on above: Order Comment: Speci men Type: BLOOD SPECIMEN Ordering Facility: [facility] Address: [address] [place] [address] Performed By: #### 2 4323-8 #### [facility] CLIA [id number] [address] [place] [address] [place] [facility] Anion gap [Moles/Vol] 10 mmol/L Normal 9-18 [facility] Comment on above: Order Comment: Speci men Type: BLOOD SPECIMEN Ordering Facility: [facility] Address: [address] [address] Performed By: #### 2 4323-8 #### [facility] CLIA [id number] [address] [place] [address] [place] AST [Catalytic activity/Vol] 30 U/L Normal 14-40 [facility] Comment on above: Order Comment: Speci men Type: BLOOD SPECIMEN Ordering Facility: [facility] Address: [address] [place] [address] Performed By: #### 2 4323-8 #### [facility] CLIA [id number] [address] [place] [address] [place] Bilirubin [Mass/Vol] 0.5 mg/dL Normal 0.2-1.3 [facility] Comment on above: Order Comment: Speci men Type: BLOOD SPECIMEN Ordering Facility: [facility] Address: [address] [address] Performed By: #### 2 4323-8 #### [facility] CLIA [id number] [address] [place] [address] [place] Calcium [Mass/Vol] 9.2 mg/dL Normal 8.5-10.2 [facility] Comment on above: Order Comment: Speci men Type: BLOOD SPECIMEN Ordering Facility: [facility] Address: [address] [place] [address] Performed By: #### 2 4323-8 #### [facility] CLIA [id number] [address] [place] [address] [place] Chloride [Moles/Vol] 106 mmol/L High 97-105 [facility] Comment on above: Order Comment: Speci men Type: BLOOD SPECIMEN Ordering Facility: [facility] Address: [address] [place] [address] Performed By: #### 2 4323-8 #### [facility] CLIA [id number] [address] [place] [address] [place] CO2 [Moles/Vol] 27 mmol/L Normal 22-30 [facility] Comment on above: Order Comment: Speci men Type: BLOOD SPECIMEN Ordering Facility: [facility] Address: [address] [place] [address] Performed By: #### 2 4323-8 #### [facility] CLIA [id number] [address] [place] [address] [place] Creatinine [Mass/Vol] 1.05 mg/dL Normal 0.73-1.22 [facility] Comment on above: Order Comment: Renea amezcua Type: BLOOD SPECIMEN Ordering Facility: [facility] Address: [address] [place] [address] Performed By: #### 2 4323-8 #### [facility] CLIA [id number] [address] [place] ESTIMATED GLOMERULAR FILTRATION RATE 83 mL/min/1.73m??? Normal >=60 [facility] Comment on above: Order Comment: Renea amezcua Type: BLOOD SPECIMEN Ordering Facility: [facility] Address: [address] [place] [address] Result Comment: Rosa M mated Glomerular Filtration Rate (eGFR) is calculated using the 2020 CKD-EPI creatinine equation. This equation utilizes serum creatinine, sex, and age as parameters. The creatinine assay has traceable calibration to isotope dilution-mass spectrometry. Refer to KDIGO guidelines for clinical interpretation. In patients with unstable renal function, e.g. those with acute kidney injury, the eGFR may not accurately reflect actual GFR. Performed By: #### 2 4323-8 #### [facility] CLIA [id number] [address] [place] [address] [place] Glucose [Mass/Vol] 155 mg/dL High 74-99 [facility] Comment on above: Order Comment: Renea amezcua Type: BLOOD SPECIMEN Ordering Facility: [facility] Address: [address] [place] [address] Result Comment: The [place] Diabetes Association (ADA) provides guidance for cutoff values for fasting glucose and random glucose. The ADA defines fasting as no caloric intake for at least 8 hours. Fasting plasma glucose results between 100 to 125 mg/dL indicate increased risk for diabetes (prediabetes). Fasting plasma glucose results greater than or equal to 126 mg/dL meet the criteria for diagnosis of diabetes. In the absence of unequivocal hyperglycemia, results should be confirmed by repeat testing. In a patient with classic symptoms of hyperglycemia or hyperglycemic crisis, random plasma glucose results greater than or equal to 200 mg/dL meet the criteria for diagnosis of diabetes. Reference: Standards of Medical Care in Diabetes 2016, [place] [employer] Association. Diabetes Care. 2016.39(Suppl 1). Performed By: #### 2 4323-8 #### [facility] CLIA [id number] [address] Potassium [Moles/Vol] 4.5 mmol/L Normal 3.7-5.1 [facility] Comment on above: Order Comment: Speci men Type: BLOOD SPECIMEN Ordering Facility: [facility] Address: [address] [place] [address] Performed By: #### 2 4323-8 #### [facility] CLIA [id number] [address] [place] Protein [Mass/Vol] 6.6 g/dL Normal 6.3-8.0 [facility] Comment on above: Order Comment: Speci men Type: BLOOD SPECIMEN Ordering Facility: [facility] Address: [address] [place] [address] Performed By: #### 2 4323-8 #### [facility] CLIA [id number] [address] Sodium [Moles/Vol] 143 mmol/L Normal 136-144 [facility] Comment on above: Order Comment: Speci men Type: BLOOD SPECIMEN Ordering Facility: [facility] Address: [address] [place] [address] Performed By: #### 2 4323-8 #### [facility] CLIA [id number] [address] Urea nitrogen [Mass/Vol] 15 mg/dL Normal 9-24 [facility] Comment on above: Order Comment: Speci men Type: BLOOD SPECIMEN Ordering Facility: [facility] Address: [address] [place] [address] Performed By: #### 2 4323-8 #### [facility] CLIA [id number] [address] [place] ED NOTEon 10-07-2022 ED NOTE HNO ID: [id number] Author: Tito Morton RN Service: ? Author Type: Registered Nurse Type: ED Notes Filed: 10/07/2022 2:51 PM Note Text: Discharge instructions d/w pt at bedside. Stated understanding with no further questions for this nurse. Encouraged f/u with PCP and referring doctors given. Stated understanding. Prescription(S) were given X5. [facility] ED PROV NOTEon 10-07-2022 ED PROV NOTE HNO ID: [id number] Author: Eduardo Bob MD Service: ? Author Type: Physician Type: ED Provider Notes Filed: 10/07/2022 3:14 PM Note Text: ED Provider Note Patient Name: Zan Villeda : 1965 SERVICE DATE: 10/07/22 History Patient presents with: Flank Pain: right flank pain, non-radiating since this morning. Denies urinary difficulties Zan Villeda presents with sudden onset of right flank pain this morning. He fell in the back and his right flank and one certain area. He states that he had been awake, and also experiences right flank pain that is nonradiating. It does not radiate to the front, nor to his testicle. He denies any fevers or chills, no dysuria or hematuria, no problems with bowel movements. No exacerbating or alleviating factors. He denies any significant past medical history or past abdominal surgeries except for hernia repair. He states that he drank a cup of juice, and now feels nauseated. He had vomited without any blood in his emesis. 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 No family history on file. Social History Tobacco Use Smoking status: Never Smokeless tobacco: Never Tobacco comments: Mother smoked in childhood home. No household ETS since. Substance and Sexual Activity Alcohol use: Yes Comment: Socially weekends, occasionally after work. Drug use: No Sexual activity: Not on file ALLERGIES No Known Allergies Review of Systems Constitutional: Negative for chills and fever. HENT: Negative. Eyes: Negative. Respiratory: Negative for cough. Cardiovascular: Negative for chest pain. Gastrointestinal: Positive for nausea and vomiting. Negative for abdominal pain and diarrhea. Genitourinary: Positive for flank pain (Right). Negative for dysuria and hematuria. Skin: Negative for rash. Neurological: Negative for headaches. Physical Exam Vitals [10/07/22 1128] BP Pulse Temp Temp src Resp SpO2 Weight Height 124/77 65 36.8 ?C (98.2 ?F) Temporal 16 98 % 106.6 kg (235 lb) -- Physical Exam Vitals and nursing note reviewed. Constitutional: General: He is not in acute distress. Appearance: He is well-developed. HENT: Head: Normocephalic and atraumatic. Eyes: Extraocular Movements: Extraocular movements intact. Pupils: Pupils are equal, round, and reactive to light. Cardiovascular: Rate and Rhythm: Normal rate and regular rhythm. Heart sounds: Normal heart sounds. Pulmonary: Effort: Pulmonary effort is normal. No respiratory distress. Breath sounds: Normal breath sounds. Abdominal: General: Bowel sounds are normal. Palpations: Abdomen is soft. Tenderness: There is no abdominal tenderness. There is right CVA tenderness (Questionable tenderness to percussion). There is no guarding or rebound. Musculoskeletal: General: Normal range of motion. Cervical back: Normal range of motion and neck supple. Skin: General: Skin is warm and dry. Capillary Refill: Capillary refill takes less than 2 seconds. Neurological: General: No focal deficit present. Mental Status: He is alert and oriented to person, place, and time. Cranial Nerves: No cranial nerve deficit. Deep Tendon Reflexes: Reflexes are normal and symmetric. Psychiatric: Mood and Affect: Mood normal. Diagnostic Testing ED Labs Ordered and Reviewed - No data to display Procedures ED Course / Clinical Impression Clinical Impressions as of 10/07/22 1440 Ureteral stone Hydronephrosis, unspecified hydronephrosis type Sigmoid diverticulitis MDM / Disposition / Plan The differential diagnosis is ureterolithiasis versus musculoskeletal flank pain and lower is acute appendicitis. However, his clinical examination is not consistent with acute appendicitis, he did not have periumbilical pain migrating to the right. He states it is only in his back. Comprehensive work-up will be pursued. I do feel CT imaging is indicated. I will also obtain a CBC and a CMP along with a urinalysis. He will be administered of normal saline bolus along with ketorolac and ondansetron. I reviewed the patient's laboratory work, urinalysis is positive for hemoglobin of 3+ with 6-10 RBCs but 0-5 WBCs, negative leukocytes and negative nitrites. CBC reviewed and shows normal white count of 9.66, hemoglobin normal at 14.3, normal platelet count of 220. Comprehensive metabolic panel shows glucose appropriately elevated at 155 with a normal anion gap of 10, sodium normal at 143, normal BUN of 15 and normal creatinine of 1.0. CT of the abdomen and pelvis without contrast does show a 5 mm stone in the region proximal to the mid right ureter which may be outside the ureter, there is right renal hydronephrosis with surrounding inflammation. There is also noted diverticulitis of the sigmoid colon on review of the rad (more content not included)... Normal [facility] Urinalysis complete panel (U )on 10-07-2022 Bacteria LM.HPF (Urine sed) [#/Area] Few Abnormal None Seen [facility] Comment on above: Order Comment: Speci men Type: URINE SPECIMEN Ordering Facility: [facility] Address: [address] [place] [address] Performed By: #### 2 4356-8 #### [facility] CLIA [id number] [address] Bilirubin Ql (U) Negative Normal Negative [facility] Comment on above: Order Comment: Speci men Type: URINE SPECIMEN Ordering Facility: [facility] Address: [address] [place] [address] Performed By: #### 2 4356-8 #### [facility] CLIA [id number] [address] Clarity (Unsp spec) Clear Normal Clear [facility] Comment on above: Order Comment: Speci men Type: URINE SPECIMEN Ordering Facility: [facility] Address: [address] [place] [address] Performed By: #### 2 4356-8 #### [facility] CLIA [id number] [address] [facility] Color (U) Yellow Normal Yellow [facility] Comment on above: Order Comment: Speci men Type: URINE SPECIMEN Ordering Facility: [facility] Address: [address] [place] [address] Performed By: #### 2 4356-8 #### [facility] CLIA [id number] [address] Epithelial cells LM.HPF (Urine sed) [#/Area] Few Normal [facility] Comment on above: Order Comment: Speci men Type: URINE SPECIMEN Ordering Facility: [facility] Address: [address] [place] [address] Performed By: #### 2 4356-8 #### [facility] CLIA [id number] [address] Glucose Test strip (U) [Mass/Vol] Negative Normal Negative [facility] Comment on above: Order Comment: Speci men Type: URINE SPECIMEN Ordering Facility: [facility] Address: [address] [place] [address] Performed By: #### 2 4356-8 #### [facility] CLIA [id number] [address] [place] Hemoglobin Ql (U) 3+ Abnormal Negative, Trace [facility] Comment on above: Order Comment: Speci men Type: URINE SPECIMEN Ordering Facility: [facility] Address: [address] [place] [address] Performed By: #### 2 4356-8 #### [facility] CLIA [id number] [address] [place] Hyaline casts (Urine sed) [#/Area] 1-3 /LPF Abnormal 0 /LPF [facility] Comment on above: Order Comment: Speci men Type: URINE SPECIMEN Ordering Facility: [facility] Address: [address] [place] [address] Performed By: #### 2 4356-8 #### [facility] CLIA [id number] [address] Ketones Ql (U) Negative Normal Negative [facility] Comment on above: Order Comment: Speci men Type: URINE SPECIMEN Ordering Facility: [facility] Address: [address] [place] [address] Performed By: #### 2 4356-8 #### [facility] CLIA [id number] [address] Leukocyte esterase Test strip Ql (U) Negative Normal Negative [facility] Comment on above: Order Comment: Speci men Type: URINE SPECIMEN Ordering Facility: [facility] Address: [address] [place] [address] Performed By: #### 2 4356-8 #### [facility] CLIA [id number] [address] [place] [address] [place] Nitrite Ql (U) Negative Normal Negative [facility] Comment on above: Order Comment: Speci men Type: URINE SPECIMEN Ordering Facility: [facility] Address: [address] [place] [address] Performed By: #### 2 4356-8 #### [facility] CLIA [id number] [address] [place] pH (U) 6.5 [pH] Normal 5.0-8.0 [facility] Comment on above: Order Comment: Speci men Type: URINE SPECIMEN Ordering Facility: [facility] Address: [address] [place] [address] Performed By: #### 2 4356-8 #### [facility] CLIA [id number] [address] [place] Protein (U) [Mass/Vol] 1+ Abnormal Negative [facility] Comment on above: Order Comment: Speci men Type: URINE SPECIMEN Ordering Facility: [facility] Address: [address] [place] [address] Performed By: #### 2 6-8 #### [facility] CLIA [id number] [address] [place] RBC LM.HPF (Urine sed) [#/Area] 6-10 /HPF Abnormal 0-3 /HPF [facility] Comment on above: Order Comment: Speci men Type: URINE SPECIMEN Ordering Facility: [facility] Address: [address] [place] [address] Performed By: #### 2 4356-8 #### [facility] CLIA [id number] [address] Specific gravity (U) [Rel density] 1.025 Normal 1.005-1.030 [facility] Comment on above: Order Comment: Speci men Type: URINE SPECIMEN Ordering Facility: [facility] Address: [address] [place] [address] Performed By: #### 2 4356-8 #### [facility] CLIA [id number] [address] Urobilinogen Ql (U) 0.2 EU/dL Normal 0.2-1.0 EU/dL [facility] Comment on above: Order Comment: Speci men Type: URINE SPECIMEN Ordering Facility: [facility] Address: [address] [place] [address] Performed By: #### 2 4356-8 #### [facility] CLIA [id number] [address] WBC LM.HPF (Urine sed) [#/Area] 0-5 /HPF Normal 0-5 /HPF [facility] Comment on above: Order Comment: Speci men Type: URINE SPECIMEN Ordering Facility: [facility] Address: [address] [place] [place] [address] Performed By: #### 2 4356-8 #### [facility] CLIA [id number] [address] Progress Noteson 12-19-2021 [employer] Authentication Interface Message Text History provided by: Patient Chief Complaint Patient presents with Abnormal appearance of eyes L upper eyelid swollen and red PCP is Zan Herrera MD Patient Active Problem List: Essential hypertension [I10] Hypogonadism male [E29.1] IFG (impaired fasting glucose) [R73.01] Encounter for long-term current use of medication [Z79.899] Screening for malignant neoplasm of prostate [Z12.5] Health Maintenance Topic Date Due COVID-19 Vaccine (1) Never done Basic Metabolic Panel 09/14/2021 Shingles (RZV) Vaccine (1 of 2) 2015 Influenza Vaccine (1) 02/02/2022 Tetanus (Td or Tdap) Booster 08/24/2024 Cholesterol 09/14/2025 CRC Screening 06/10/2026 Tdap Booster Completed Pneumococcal Vaccine(s) Aged Out Hepatitis C Antibody Discontinued HIV Test Discontinued Current Outpatient Medications Medication Sig Dispense Refill fluticasone (FLONASE) 50 mcg/act nasal inhaler Use 1 [place] in each nostril daily. 16 g 3 losartan-hydrochloroth iazide (HYZAAR) 100-12.5 MG per tablet Take 1 Tablet by mouth daily. 90 Tablet 3 Testosterone Undecanoate (Jatenzo) 237 MG CAPS Take 237 mg by mouth 2 times daily. 60 Capsule 5 hydrochlorothiazide (HYDRODIURIL) 12.5 MG tablet Take 12.5 mg by mouth daily. losartan (COZAAR) 100 MG tablet Take 100 mg by mouth daily. No current facility-administered medications for this visit. Physical Exam Vitals reviewed. Constitutional: Appearance: Normal appearance. Eyes: General: Scleral icterus present. Conjunctiva/sclera: Conjunctivae normal. Pupils: Pupils are equal, round, and reactive to light. Neurological: Mental Status: He is alert. Assessment Zan was seen today for abnormal appearance of eyes. Pt had this happen a year ago after being in heat and sun for a long period of time. Swelling left upper lid using antibiotic ointment. Vision is okay Diagnoses and all orders for this visit: Cellulitis of left eyelid- meds below warm compresses continue ointment. - amoxicillin-clavulanat e (Augmentin) 875-125 MG per tablet; Take 1 Tablet by mouth 2 times daily. - gentamicin (GARAMYCIN) 0.3 % ophthalmic solution; Place 1 Drop in the left eye every 4 hours. Follow up: as needed Normal [facility] Harry[employer] Authentication Interface Message Text Patient was identified by name and date of . Tanika Sparks Patient at risk for falls:No Falls Risk protocol implemented: No [facility] Telephone Encounteron 2021 [employer] Operator Authentication Interface Message Text Identification was verified by patient verbalizing his name and date of . Pt requesting refill on medication below. Please advice, Thank you Normal [facility] Telephone Encounteron 2020 [employer] Operator Authentication Interface Message Text Dr. Herrera, Pt calling in and requesting a refill on his flonase - refill pended. Pt also requesting to have the original order for the hydrochlorothiazide-lo sartan combination medication called in. When script was originally written the pharmacy did not have the combination medication available so the medication was split into hydrochlorothiazide and losartan individually. Pt is in need of a refill and would like the combination pill if possible. Please advise. Normal [facility] CNOVon 09-22-2018 CN Office Visit ([facility]AR[facility] ) ZAN VILLEDA ([id number]) 1965 M Date Time Provider Department 09/22/18 3:30 PM KATE MITCHELL During your visit today, we recorded the following information about you: Temperature Pulse Blood pressure Weight 98.6 degrees 91/minute 110/79 117.9 kg Kate Mitchell, FOOD SCIENCE TECHNICIAN.REGISTERED PHARMACIST 09/22/2018 3:57 PM Signed 09/22/2018 Patient presents with: Cough SUBJECTIVE: This is a 53 year old male that is here today for acute onset of coughing, fatigue for 1 week. Patient rates pain at 6 on Numerical pain scale. Patient has been taking mdi with minimal relief of symptoms. The severity is mild and the symptoms are not improving. The patient did not have a similar problem in the last 3 months. The patient did not take any antibiotics in the last 3 months. Patient has not been exposed to sick contacts. Patient denies recent travel. Pertinent medical history. PAST MEDICAL HISTORY Diagnosis Date - Chronic cough 09/11/2015 ALLERGIES Patient has no known allergies. MEDICATIONS Current Outpatient Medications: albuterol HFA (PROAIR HFA) 90 mcg/actuation inhaler Inhale 2 Puffs as instructed every 4 hours as needed. losartan-hydrochloroth iazide (HYZAAR) 100-25 mg per tablet Take 1 tablet by mouth once daily. No current facility-administered medications for this visit. SOCIAL HISTORY Social History Socioeconomic History Marital status: Spouse name: Not on file Number of children: Not on file Years of education: Not on file Highest education level: Not on file Social Needs Financial resource strain: Not on file Food insecurity - worry: Not on file Food insecurity - inability: Not on file Transportation needs - medical: Not on file Transportation needs - non-medical: Not on file Occupational History Not on file Tobacco Use Smoking status: Never Smoker Smokeless tobacco: Never Used Tobacco comment: Mother smoked in childhood home. No household ETS since. Substance and Sexual Activity Alcohol use: Yes Comment: Socially weekends, occasionally after work. Drug use: No Sexual activity: Not on file Other Topics Concerns: Not on file Social History Narrative Not on file REVIEW OF SYSTEMS Review of Systems Constitutional: Positive for fatigue. Negative for chills, diaphoresis and fever. HENT: Negative for congestion, ear pain, postnasal drip, rhinorrhea, sinus pressure, sinus pain and sore throat. Respiratory: Positive for cough. Negative for chest tightness, shortness of breath and wheezing. Cardiovascular: Negative for chest pain. OBJECTIVE: BP 110/79 Pulse 91 Temp 37 ?C (98.6 ?F) (Oral) Wt 117.9 kg (260 lb) SpO2 97% BMI 41.97 kg/m? Physical Exam Constitutional: Vital signs are normal. He appears well-developed and well-nourished. Non-toxic appearance. HENT: Head: Normocephalic and atraumatic. Right Ear: Tympanic membrane, external ear and ear canal normal. Left Ear: Tympanic membrane, external ear and ear canal normal. Nose: Nose normal. Mouth/Throat: Uvula is midline, oropharynx is clear and moist and mucous membranes are normal. Neck: Normal range of motion. Cardiovascular: Normal rate, regular rhythm and normal heart sounds. Pulmonary/Chest: Effort normal and breath sounds normal. Lymphadenopathy: He has no cervical adenopathy. Neurological: He is alert. Nursing note and vitals reviewed. ASSESSMENT/PLAN: 1. Bronchitis - ICD9: 490, ICD10: J40 - CODEINE 10 MG-GUAIFENESIN 100 MG/5 ML ORAL LIQUID - BENZONATATE 200 MG CAPSULE - combine with delsym - PREDNISONE 20 MG TABLET The patient is instructed to return or seek emergency treatment if symptoms become worse or with any acute change in condition. The patient verbalizes understanding and is in agreement with plan of care. Kate Mitchell APRN.SHERI Mitchell APRN.SHERI 09/22/2018 3:40 PM Signed ASSESSMENT/PLAN: 1. Bronchitis - ICD9: 490, ICD10: J40 - CODEINE 10 MG-GUAIFENESIN 100 MG/5 ML ORAL LIQUID - BENZONATATE 200 MG CAPSULE - combine with delsym - PREDNISONE 20 MG TABLET The patient is instructed to return or seek emergency treatment if symptoms become worse or with any acute change in condition. The patient verbalizes understanding and is in agreement with plan of care. Kate Mitchell APRN.REGISTERED PHARMACIST Referring Provider: SELF [200] Allergies As of Date: 09/22/2018 (No Known Allergies) Date Reviewed: 09/22/2018 Reviewed by: Rosibel Brown - Fully Assessed Reason for Visit: Cough [28] Primary Visit Diagnosis:Bronchitis [J40] Order(s):codeine-guaiF ENesin (CHERATUSSIN AC) 10-100 mg/5 mL syrupTake 5 mL by mouth four times daily as needed for Cough for up to 10 days.Disp: 118 mLRfl: 0 Benzonatate 200 mg capsuleTake 1 capsule by mouth three times daily as needed for Cough.Disp: 30 capsuleRfl: 0 predniSONE (DELTASONE) 20 mg tabletTake 2 tablets by mouth once daily for 5 days.Disp: 10 tabletRfl: 0 Prescriptions as of 09/22/2018 Sig: ALBUTEROL SULFATE HFA 90 MCG/* Inhale 2 Puffs as instructed * LOSARTAN 100 MG-HYDROCHLOROTH* Take 1 tablet by mouth once d* CODEINE 10 MG-GUAIFENESIN 100* Take 5 mL by mouth four times* BENZONATATE 200 MG CAPSULE Take 1 capsule by mouth three* PREDNISONE 20 MG TABLET Take 2 tablets by mouth once * Problem List As Of Date 09/22/2018 Noted Resolved Chronic cough [R05] INVALID FOR* Other instructions from your clinician: ASSESSMENT/PLAN: 1. Bronchitis - ICD9: 490, ICD10: J40 - CODEINE 10 MG-GUAIFENESIN 100 MG/5 ML ORAL LIQUID - BENZONATATE 200 MG CAPSULE - combine with delsym - PREDNISONE 20 MG TABLET The patient is instructed to return or seek emergency treatment if symptoms become worse or with any acute change in condition. The patient verbalizes understanding and is in agreement with plan of care. Kate Mitchell, EDIN.REGISTERED PHARMACIST Prescriptions ordered this encounter Disp Refills Start End CODEINE 10 MG-GUAIFENESIN 100 MG/5 M* 118 * 0 09/22/2018 10/02/2018 Class: Print RX Route: ORAL Sig: Take 5 mL by mouth four times daily as needed for Cough for up to 10 days. BENZONATATE 200 MG CAPSULE 30 c* 0 09/22/2018 Route: ORAL Sig: Take 1 capsule by mouth three times daily as needed for Cough. PREDNISONE 20 MG TABLET 10 t* 0 09/22/2018 09/27/2018 Route: ORAL Sig: Take 2 tablets by mouth once daily for 5 days. Medications Discontinued During This Encounter benzonatate (TESSALON PERLE) 100 mg * 30 c* 0 09/05/2018 09/22/2018 Route: ORAL Sig: Take 2 capsules by mouth three times daily as needed. Patient not taking: Reported on 09/22/2018 Disc: Course of therapy completed Encounter Status:Closed by STEPHEN, KATE Carballo on 09/22/18 Normal [facility] PROGRESSon 09-22-2018 Protein mass conc HNO ID: [id number] Author: Kate Mitchell Service: ? Author Type: Nurse Practitioner Type: Progress Notes Filed: 09/22/2018 3:57 PM Note Text: 09/22/2018 Patient presents with: Cough SUBJECTIVE: This is a 53 year old male that is here today for acute onset of coughing, fatigue for 1 week. Patient rates pain at 6 on Numerical pain scale. Patient has been taking mdi with minimal relief of symptoms. The severity is mild and the symptoms are not improving. The patient did not have a similar problem in the last 3 months. The patient did not take any antibiotics in the last 3 months. Patient has not been exposed to sick contacts. Patient denies recent travel. Pertinent medical history. PAST MEDICAL HISTORY Diagnosis Date - Chronic cough 09/11/2015 ALLERGIES Patient has no known allergies. MEDICATIONS Current Outpatient Medications: albuterol HFA (PROAIR HFA) 90 mcg/actuation inhaler Inhale 2 Puffs as instructed every 4 hours as needed. losartan-hydrochloroth iazide (HYZAAR) 100-25 mg per tablet Take 1 tablet by mouth once daily. No current facility-administered medications for this visit. SOCIAL HISTORY Social History Socioeconomic History Marital status: Spouse name: Not on file Number of children: Not on file Years of education: Not on file Highest education level: Not on file Social Needs Financial resource strain: Not on file Food insecurity - worry: Not on file Food insecurity - inability: Not on file Transportation needs - medical: Not on file Transportation needs - non-medical: Not on file Occupational History Not on file Tobacco Use Smoking status: Never Smoker Smokeless tobacco: Never Used Tobacco comment: Mother smoked in childhood home. No household ETS since. Substance and Sexual Activity Alcohol use: Yes Comment: Socially weekends, occasionally after work. Drug use: No Sexual activity: Not on file Other Topics Concerns: Not on file Social History Narrative Not on file REVIEW OF SYSTEMS Review of Systems Constitutional: Positive for fatigue. Negative for chills, diaphoresis and fever. HENT: Negative for congestion, ear pain, postnasal drip, rhinorrhea, sinus pressure, sinus pain and sore throat. Respiratory: Positive for cough. Negative for chest tightness, shortness of breath and wheezing. Cardiovascular: Negative for chest pain. OBJECTIVE: BP 110/79 Pulse 91 Temp 37 ?C (98.6 ?F) (Oral) Wt 117.9 kg (260 lb) SpO2 97% BMI 41.97 kg/m? Physical Exam Constitutional: Vital signs are normal. He appears well-developed and well-nourished. Non-toxic appearance. HENT: Head: Normocephalic and atraumatic. Right Ear: Tympanic membrane, external ear and ear canal normal. Left Ear: Tympanic membrane, external ear and ear canal normal. Nose: Nose normal. Mouth/Throat: Uvula is midline, oropharynx is clear and moist and mucous membranes are normal. Neck: Normal range of motion. Cardiovascular: Normal rate, regular rhythm and normal heart sounds. Pulmonary/Chest: Effort normal and breath sounds normal. Lymphadenopathy: He has no cervical adenopathy. Neurological: He is alert. Nursing note and vitals reviewed. ASSESSMENT/PLAN: 1. Bronchitis - ICD9: 490, ICD10: J40 - CODEINE 10 MG-GUAIFENESIN 100 MG/5 ML ORAL LIQUID - BENZONATATE 200 MG CAPSULE - combine with delsym - PREDNISONE 20 MG TABLET The patient is instructed to return or seek emergency treatment if symptoms become worse or with any acute change in condition. The patient verbalizes understanding and is in agreement with plan of care. Kate Mitchell, FOOD SCIENCE TECHNICIAN.[facility] CNOVon 09-05-2018 CNOV Office Visit ([place] ) ZAN VILLEDA ([id number]) 1965 M Date Time Provider Department 09/05/18 11:00 AM ASHLEY HAYWARD PA-C During your visit today, we recorded the following information about you: Temperature Pulse Respiration Blood pressure 100 degrees 123/minute 12/minute 116/76 Weight 116.5 kg Ashley Hayward PA-C, PA 09/05/2018 11:25 AM Signed 09/05/2018 Patient presents with: URI: x3 days SUBJECTIVE: This is a 53 year old with HTN that is here today for concern for URI symptoms. The patient complains of acute onset ongoing cough, sinus pressure, rhinorrhea and congestion but low grade fever and body aches x 3 days. He has tried mucienx DM OTC. He complains that he has noted shortness of breath with activity and like its harder to take a deep breath. Patient denies wheezing, increased WOB, or chest pain. Per EMR, he has been seen by pulmonary in the past for chronic cough and given Flovent, but last documentation of this was in 2017. Asthma: none Pneumonia: none Tobacco: none Pain on scale of 0-10 with 0 being no pain and 10 being greatest pain: 0 Nothing makes the symptoms better. Nothing makes them worse. Self-treatment:. See HPI The severity is mild and the symptoms are not improving. The patient did not have a similar problem in the last 3 months. The patient did not take any antibiotics in the last 3 months. Barriers to learning: none. Reviewed meds, OTCs, herbals or supplements. Reviewed allergies, medications, social history, and past medical history. PAST MEDICAL HISTORY Diagnosis Date - Chronic cough 09/11/2015 ALLERGIES Patient has no known allergies. MEDICATIONS Current Outpatient Medications: fluticasone (FLONASE) 50 mcg/actuation nasal spray Use 1 [place] in each nostril daily at bedtime. losartan-hydrochloroth iazide (HYZAAR) 100-25 mg per tablet Take 1 tablet by mouth once daily. fluticasone (FLOVENT HFA) 110 mcg/actuation inhaler Rinse mouth after use. No current facility-administered medications for this visit. Medications and allergies reviewed by this provider. SOCIAL HISTORY Social History Socioeconomic History Marital status: Spouse name: Not on file Number of children: Not on file Years of education: Not on file Highest education level: Not on file Social Needs Financial resource strain: Not on file Food insecurity - worry: Not on file Food insecurity - inability: Not on file Transportation needs - medical: Not on file Transportation needs - non-medical: Not on file Occupational History Not on file Tobacco Use Smoking status: Never Smoker Tobacco comment: Mother smoked in childhood home. No household ETS since. Substance and Sexual Activity Alcohol use: Yes Comment: Socially weekends, occasionally after work. Drug use: No Sexual activity: Not on file Other Topics Concerns: Not on file Social History Narrative Not on file REVIEW OF SYSTEMS Review of Systems ROS: constitutional-neg, heent-sinus symptoms, heart-neg, respiratory-cough, GI-neg, -neg, skin-neg, MS-neg, endo-neg, heme-neg, lymph-neg, neuro-neg, psych-neg- All systems neg except as noted above in HPI. OBJECTIVE: BP 116/76 Pulse (!) 123 Temp 37.8 ?C (100 ?F) (Tympanic) Resp 12 Wt 116.5 kg (256 lb 12.8 oz) SpO2 96% BMI 41.45 kg/m? . Vital signs reviewed by this provider. Physical Exam AAOx3, no acute distress, patient is pleasant, well groomed, dressed appropriately. General: WD, WN, NAD, alert. HEENT: No facial erythema or swelling. Eyes: PERRL. EOMI. No erythema or discharge. -Ears: TMs pearly mtz with light reflex, ear canals not red or swollen. +Clear, effusion bilaterally. -Nose-nasal mucosa erythematous, boggy, and raw. +thick discharge. No polyps, nasal septum midline. -Throat: pharynx pink with no edema/mass/exudate/janine thema, buccal mucosa pink and moist with no lesions. +thick post nasal drainage present on posterior pharynx. Head: + maxillary tenderness noted upon palpation. Neck: no masses or lymphadenopathy. Chest: CTA bilaterally but decreased BS throughout, with equal breath sounds; No overt wheezing, rhonchi, or crackles; no retractions, tripoding, or nasal flaring noted. Heart: RRR, no murmur, rub, or gallop.. ASSESSMENT/PLAN: 1. Sinobronchitis - ICD9: 473.9, 490, ICD10: J32.9, J40 (primary diagnosis) 2. Sore throat - ICD9: 462, ICD10: J02.9 3. Low grade fever - ICD9: 780.60, ICD10: R50.9 - DOXYCYCLINE MONOHYDRATE 100 MG CAPSULE - METHYLPREDNISOLONE 4 MG TABLETS IN A DOSE PACK - ALBUTEROL SULFATE HFA 90 MCG/ACTUATION AEROSOL INHALER - BENZONATATE 100 MG CAPSULE - Restart your Flonase Encourage fluids, rest. Tylenol and Motrin for pain and fever. If you have a fever rotate between the Tylenol and Motrin every 3 hours. Saline Nasil spray, Neti Pot, vaporizer, Vicks. Try Cepocol lozenges or Chloraseptic throat spray. Warm salt water gargles. Cough and deep breath- 10x/hr while awake. Take entire course of Antibiotics. Call PCP if sx worsen or no better. If symptoms worsen, or new symptoms develop go to ER. If you have worsening of breathing or breathing changes- go to ER. If you have persistent fever unrelieved by Tylenol/Motrin- go to the ER. Follow up as needed. Barriers to learning: none. The patient verbalizes understanding and is in agreement with plan of care. DEMARCO Desai PA-C, LUISA 09/05/2018 11:12 AM Signed ASSESSMENT/PLAN: 1. Sinobronchitis 2. Sore throat - 3. Low grade fever - - DOXYCYCLINE MONOHYDRATE 100 MG CAPSULE - METHYLPREDNISOLONE 4 MG TABLETS IN A DOSE PACK - ALBUTEROL SULFATE HFA 90 MCG/ACTUATION AEROSOL INHALER - BENZONATATE 100 MG CAPSULE - Restart your Flonase Encourage fluids, rest. Tylenol and Motrin for pain and fever. If you have a fever rotate between the Tylenol and Motrin every 3 hours. Saline Nasil spray, Neti Pot, vaporizer, Vicks. Try Cepocol lozenges or Chloraseptic throat spray. Warm salt water gargles. Cough and deep breath- 10x/hr while awake. Take entire course of Antibiotics. Call PCP if sx worsen or no better. If symptoms worsen, or new symptoms develop go to ER. If you have worsening of breathing or breathing changes- go to ER. If you have persistent fever unrelieved by Tylenol/Motrin- go to the ER. Follow up as needed. Barriers to learning: none. The patient verbalizes understanding and is in agreement with plan of care. Ashley Hayward PA-C Referring Provider: SELF [200] Allergies As of Date: 09/05/2018 (No Known Allergies) Date Reviewed: 09/05/2018 Reviewed by: Simona Bernard Ma - Fully Assessed Reason for Visit: URI [115] Cmt: x3 days Primary Visit Diagnosis:Sinobronchit is [J32.9, J40] Other Visit Diagnoses:Sore throat [J02.9] Low grade fever [R50.9] Order(s):doxycycline monohydrate (MONODOX) 100 mg capsuleTake 1 capsule by mouth twice daily for 10 days.Disp: 20 capsuleRfl: 0 methylPREDNISolone (MEDROL, LILLIE,) 4 mg Dose-PackFollow dosing instructions, take with food.Disp: 1 PackageRfl: 0 albuterol HFA (PROAIR HFA) 90 mcg/actuation inhalerInhale 2 Puffs as instructed every 4 hours as needed.Disp: 1 InhalerRfl: 0 benzonatate (TESSALON PERLE) 100 mg capsuleTake 2 capsules by mouth three times daily as needed.Disp: 30 capsuleRfl: 0 Prescriptions as of 09/05/2018 Sig: LOSARTAN 100 MG-HYDROCHLOROTH* Take 1 tablet by mouth once d* DOXYCYCLINE MONOHYDRATE 100 M* Take 1 capsule by mouth twice* METHYLPREDNISOLONE 4 MG TABLE* Follow dosing instructions, t* ALBUTEROL SULFATE HFA 90 MCG/* Inhale 2 Puffs as instructed * BENZONATATE 100 MG CAPSULE Take 2 capsules by mouth thre* Medication notes this encounter FLUTICASONE PROPIONATE 50 MCG/ACTUATION NASAL SPRAY,SUSPENSION >> Simona Bernard Ma 09/05/2018 11:03 AM >> SIMONA BERNARD MA September 05, 2018 11:03 AM Not using FLUTICASONE PROPIONATE 110 MCG/ACTUATION HFA AEROSOL INHALER >> Simona Bernard Ma 09/05/2018 11:03 AM >> SIMONA BERNARD MA September 05, 2018 11:03 AM Not using Problem List As Of Date 09/05/2018 Noted Resolved Chronic cough [R05] INVALID FOR* Other instructions from your clinician: ASSESSMENT/PLAN: 1. Sinobronchitis 2. Sore throat - 3. Low grade fever - - DOXYCYCLINE MONOHYDRATE 100 MG CAPSULE - METHYLPREDNISOLONE 4 MG TABLETS IN A DOSE PACK - ALBUTEROL SULFATE HFA 90 MCG/ACTUATION AEROSOL INHALER - BENZONATATE 100 MG CAPSULE - Restart your Flonase Encourage fluids, rest. Tylenol and Motrin for pain and fever. If you have a fever rotate between the Tylenol and Motrin every 3 hours. Saline Nasil spray, Neti Pot, vaporizer, Vicks. Try Cepocol lozenges or Chloraseptic throat spray. Warm salt water gargles. Cough and deep breath- 10x/hr while awake. Take entire course of Antibiotics. Call PCP if sx worsen or no better. If symptoms worsen, or new symptoms develop go to ER. If you have worsening of breathing or breathing changes- go to ER. If you have persistent fever unrelieved by Tylenol/Motrin- go to the ER. Follow up as needed. Barriers to learning: none. The patient verbalizes understanding and is in agreement with plan of care. Ashley Hayward PA-C Prescriptions ordered this encounter Disp Refills Start End DOXYCYCLINE MONOHYDRATE 100 MG CAPSU* 20 c* 0 09/05/2018 09/15/2018 Route: ORAL Sig: Take 1 capsule by mouth twice daily for 10 days. METHYLPREDNISOLONE 4 MG TABLETS IN A* 1 Pa* 0 09/05/2018 09/11/2018 Sig: Follow dosing instructions, take with food. ALBUTEROL SULFATE HFA 90 MCG/ACTUATI* 1 In* 0 09/05/2018 Route: INHALATION Sig: Inhale 2 Puffs as instructed every 4 hours as needed. BENZONATATE 100 MG CAPSULE 30 c* 0 09/05/2018 Route: ORAL Sig: Take 2 capsules by mouth three times daily as needed. Medications Discontinued During This Encounter fluticasone (FLONASE) 50 mcg/actuati* 0 06/18/2016 09/05/2018 Class: Med Update Route: EACH NOSTRIL Sig: Use 1 [place] in each nostril daily at bedtime. Disc: Reason for discontinue is not on file. fluticasone (FLOVENT HFA) 110 mcg/ac* 1 In* 3 06/18/2016 09/05/2018 Sig: Rinse mouth after use. Disc: Reason for discontinue is not on file. Encounter Status:Closed by ASHLEY HAYWARD on 09/05/18 [facility] PROGRESSon 09-05-2018 Protein mass conc HNO ID: [id number] Author: Ashley Carballo (Demarco) LUISA Hayward Service: ? Author Type: Physician Career Resource Technician Type: Progress Notes Filed: 09/05/2018 11:25 AM Note Text: 09/05/2018 Patient presents with: URI: x3 days SUBJECTIVE: This is a 53 year old with HTN that is here today for concern for URI symptoms. The patient complains of acute onset ongoing cough, sinus pressure, rhinorrhea and congestion but low grade fever and body aches x 3 days. He has tried mucienx DM OTC. He complains that he has noted shortness of breath with activity and like its harder to take a deep breath. Patient denies wheezing, increased WOB, or chest pain. Per EMR, he has been seen by pulmonary in the past for chronic cough and given Flovent, but last documentation of this was in 2017. Asthma: none Pneumonia: none Tobacco: none Pain on scale of 0-10 with 0 being no pain and 10 being greatest pain: 0 Nothing makes the symptoms better. Nothing makes them worse. Self-treatment:. See HPI The severity is mild and the symptoms are not improving. The patient did not have a similar problem in the last 3 months. The patient did not take any antibiotics in the last 3 months. Barriers to learning: none. Reviewed meds, OTCs, herbals or supplements. Reviewed allergies, medications, social history, and past medical history. PAST MEDICAL HISTORY Diagnosis Date - Chronic cough 09/11/2015 ALLERGIES Patient has no known allergies. MEDICATIONS Current Outpatient Medications: fluticasone (FLONASE) 50 mcg/actuation nasal spray Use 1 [place] in each nostril daily at bedtime. losartan-hydrochloroth iazide (HYZAAR) 100-25 mg per tablet Take 1 tablet by mouth once daily. fluticasone (FLOVENT HFA) 110 mcg/actuation inhaler Rinse mouth after use. No current facility-administered medications for this visit. Medications and allergies reviewed by this provider. SOCIAL HISTORY Social History Socioeconomic History Marital status: Spouse name: Not on file Number of children: Not on file Years of education: Not on file Highest education level: Not on file Social Needs Financial resource strain: Not on file Food insecurity - worry: Not on file Food insecurity - inability: Not on file Transportation needs - medical: Not on file Transportation needs - non-medical: Not on file Occupational History Not on file Tobacco Use Smoking status: Never Smoker Tobacco comment: Mother smoked in childhood home. No household ETS since. Substance and Sexual Activity Alcohol use: Yes Comment: Socially weekends, occasionally after work. Drug use: No Sexual activity: Not on file Other Topics Concerns: Not on file Social History Narrative Not on file REVIEW OF SYSTEMS Review of Systems ROS: constitutional-neg, heent-sinus symptoms, heart-neg, respiratory-cough, GI-neg, -neg, skin-neg, MS-neg, endo-neg, heme-neg, lymph-neg, neuro-neg, psych-neg- All systems neg except as noted above in HPI. OBJECTIVE: BP 116/76 Pulse (!) 123 Temp 37.8 ?C (100 ?F) (Tympanic) Resp 12 Wt 116.5 kg (256 lb 12.8 oz) SpO2 96% BMI 41.45 kg/m? . Vital signs reviewed by this provider. Physical Exam AAOx3, no acute distress, patient is pleasant, well groomed, dressed appropriately. General: WD, WN, NAD, alert. HEENT: No facial erythema or swelling. Eyes: PERRL. EOMI. No erythema or discharge. -Ears: TMs pearly mtz with light reflex, ear canals not red or swollen. +Clear, effusion bilaterally. -Nose-nasal mucosa erythematous, boggy, and raw. +thick discharge. No polyps, nasal septum midline. -Throat: pharynx pink with no edema/mass/exudate/janine thema, buccal mucosa pink and moist with no lesions. +thick post nasal drainage present on posterior pharynx. Head: + maxillary tenderness noted upon palpation. Neck: no masses or lymphadenopathy. Chest: CTA bilaterally but decreased BS throughout, with equal breath sounds; No overt wheezing, rhonchi, or crackles; no retractions, tripoding, or nasal flaring noted. Heart: RRR, no murmur, rub, or gallop.. ASSESSMENT/PLAN: 1. Sinobronchitis - ICD9: 473.9, 490, ICD10: J32.9, J40 (primary diagnosis) 2. Sore throat - ICD9: 462, ICD10: J02.9 3. Low grade fever - ICD9: 780.60, ICD10: R50.9 - DOXYCYCLINE MONOHYDRATE 100 MG CAPSULE - METHYLPREDNISOLONE 4 MG TABLETS IN A DOSE PACK - ALBUTEROL SULFATE HFA 90 MCG/ACTUATION AEROSOL INHALER - BENZONATATE 100 MG CAPSULE - Restart your Flonase Encourage fluids, rest. Tylenol and Motrin for pain and fever. If you have a fever rotate between the Tylenol and Motrin every 3 hours. Saline Nasil spray, Neti Pot, vaporizer, Vicks. Try Cepocol lozenges or Chloraseptic throat spray. Warm salt water gargles. Cough and deep breath- 10x/hr while awake. Take entire course of Antibiotics. Call PCP if sx worsen or no better. If symptoms worsen, or new symptoms develop go to ER. If you have worsening of breathing or breathing changes- go to ER. If you have persistent fever unrelieved by Tylenol/Motrin- go to the ER. Follow up as needed. Barriers to learning: none. The patient verbalizes understanding and is in agreement with plan of care. Ahsley Hayward PA-C [facility] CR Foot Complete 3+ Views [place] 01-20-2018 CR Foot Complete 3+ Views Left Patient Name: ZAN VILLEDA Diagnostic Radiology Exam Date/Time 01/20/2018 17:54:48 EDT Exam CR Foot Complete 3+ Views Left Ordering Physician [id number] JOSÉ ANTONIO MUNGUIA Accession Number [id number] CPT4 Codes 98619 () Reason For Exam injury 5th toe with tenderness and ecchymosis Addendum This exam in the patient's exam history was incorrectly coded to this patient. The billing and report corrections were made on accession number [id number]. Final Addendum Signed Date and Time: 01/26/2018 2:19 pm Signed by: CHIEF GREEN OFFICER, SYSTEM Transcribed Date and Time: 01/21/2018 3:17 Transcribed By:TS Report RIGHT FOOT THREE VIEWS CLINICAL INDICATION: injury 5th toe with tenderness and ecchymosis TECHNIQUE: Three views of the right foot. COMPARISON: None FINDINGS: Minimally displaced fracture involving the proximal shaft of digit 5 proximal phalanx. No articular extension seen. No other fractures seen. Joint spaces are maintained. IMPRESSION: 1. Fracture of proximal phalanx of digit 5. Report Dictated on Report revised on 01/26/2018 14:19:53 EDT by CHIEF GREEN OFFICER, SYSTEM Final Dictated: 01/20/2018 6:24 pm Dictating Physician: MD OCHOA JOHN R Signed Date and Time: 01/20/2018 6:25 pm Signed by: MD OCHOA JOHN R Transcribed Date and Time: 01/20/2018 6:24 [facility] CR Foot Complete 3+ Views Omid desouza 01-20-2018 CR Foot Complete 3+ Views Right Patient Name: ZAN VILLEDA Diagnostic Radiology Exam Date/Time 01/20/2018 17:51:00 EDT Exam CR Foot Complete 3+ Views Right Ordering Physician [id number] ANTONIO WOOTEN Accession Number [id number] CPT4 Codes 71853 () Reason For Exam rt foot pain Report RIGHT FOOT THREE VIEWS CLINICAL INDICATION: injury 5th toe with tenderness and ecchymosis TECHNIQUE: Three views of the right foot. COMPARISON: None FINDINGS: Minimally displaced fracture involving the proximal shaft of digit 5 proximal phalanx. No articular extension seen. No other fractures seen. Joint spaces are maintained. IMPRESSION: 1. Fracture of proximal phalanx of digit 5. Report Dictated on Final Dictated: 01/20/2018 6:24 pm Dictating Physician: MD OCHOA JOHN R Signed Date and Time: 01/20/2018 6:25 pm Signed by: MD OCHOA JOHN R Transcribed Date and Time: 01/20/2018 6:24 [facility] Clinical Summary: HMSPatient IDon 09-15-2017 OOP Invalid Interpretation Code [facility] Work Phone: Office Visit: Postop - subse quent visit, Rm:on 09-15-2017 NEGATED: Highlighted rowDocumentation of current medications (procedure) Done Invalid Interpretation Code [facility] Work Phone: Vital Signs Date Time Vital Sign Value Performing Clinician Facility 10-05-2024 16:56-0400 Body height 180.34 cm Anne-Mariearminda AcostaLujan ABSTRACTER-C Work Phone: [facility] 10-05-2024 16:56-0400 Body mass index (BMI) [Ratio] 38.3 kg/m2 Anne-Marie Franco ABSTRACTER-C Work Phone: [facility] 10-05-2024 16:56-0400 Body weight 124.73 kg Anne-Mariearminda AcostaLujan ABSTRACTER-C Work Phone: [facility] NEGATED: Highlighted [id number] 09:01-0400 BMI (Body Mass Index) 33.35 kg/m2 Eun Higgins [facility] Work Phone: NEGATED: Highlighted [id number] 09:01-0400 BP Diastolic 89 mm[Hg] Eun Sera [facility] Work Phone: NEGATED: Highlighted [id number] 09:01-0400 BP Systolic 136 mm[Hg] Eun Sera [facility] Work Phone: NEGATED: Highlighted [id number] 09:01-0400 Height 182.88 cm Eun Gisela [facility] Work Phone: NEGATED: Highlighted [id number] 09:01-0400 Height 183 cm Eun Sera [facility] Work Phone: NEGATED: Highlighted [id number] 09:01-0400 Pulse (Heart Rate) 72 /min Eun Sera [facility] Work Phone: NEGATED: Highlighted [id number] 09:01-0400 Weight 111.13 kg Eun Sera [facility] Work Phone: NEGATED: Highlighted [id number] 09:010400 Weight 111 kg Eun Higgins LPN [facility] Work Phone: Encounters Encounter Date Encounter Type Care Provider Facility Start: 10-05-2024 End: 10-05-2024 ambulatory Anne-Marie Acostason ABSTRACTER-C Work Phone: [facility] Work Phone: Start: 02-08-2024 End: 02-08-2024 Letter encounter Zan Herrera MD Work Phone: [facility] Start: 12-13-2023 Encounter for genera l adult medical examination without abnormal findings Anne-Marie Lujan [facility] Start: 12-01-2023 ambulatory ANNE-MARIE LUJAN Facil ity:[facility] Start: 12-01-2023 End: 12-01-2023 Subsequent hospital visit by physician [facility] Comment on above: Shortness of breath [R06.02] Start: 11-25-2023 Patient encounter status Anne-Marie Franco ABSTRACTER-C Work Phone: [facility] Start: 11-25-2023 End: 11-25-2023 ambulatory Anne-Marie Lujan Facility:[facility] Start: 07-27-2023 Letter encounter [employer] Work Phone: Start: 10-07-2022 End: 10-07-2022 Emergency department patient visit UNKNOWN PROVIDER Facility:[facility] Start: 03-06-2022 Refill Zan Herrera MD Work Phone: [facility] Comment on above: Refill Start: 12-19-2021 End: 12-19-2021 ambulatory UNKNOWN PROVIDER Facility:[facility] Start: 07-25-2021 Telephone encounter Nieves Sanders [facility] Comment on above: Refill Start: 07-16-2019 End: 07-16-2019 Subsequent hospital visit by physician Zan Herrera Work Phone: [facility] Start: 01-20-2018 Emergency department patient visit José Antonio Ramos [facility] Start: 09-15-2017 End: 09-15-2017 Patient encounter procedure Vincent Muro MD Work Phone: [facility] Work Phone: Procedures Date Procedure Procedure Detail Performing Clinician Start: 12-01-2023 Radiologic exam ches t 2 views Anne-Marie Lujan FOOD SCIENCE TECHNICIAN.REGISTERED PHARMACIST Work Phone: Start: 09-14-2020 Lipid 1996 panel - S [facility] or [facility] Start: 09-15-2017 End: 09-15-2017 Blood pressure within normal parameters - no follow-up required Vincent Muro MD Work Phone: Start: 09-15-2017 End: 09-15-2017 BMI documented as above normal parameters - follow-up documented Vincent Muro MD Work Phone: Start: 09-15-2017 End: 09-15-2017 Current medications documented Vincent Muro MD Work Phone: Start: 09-15-2017 End: 09-15-2017 Pain assessment documented as negative - follow-up not required Vincent Muro MD Work Phone: Start: 09-15-2017 End: 09-15-2017 Tobacco non-user Vincent Michelle Work Phone: Start: 06-10-2016 Colonoscopy Nieves adams Plan of Treatment Date Care Activity Detail Author Start: 06-10-2026 Colon cancer screen colonoscopy Colon cancer screen colonoscopy [place], [place] Start: 06-10-2026 Screening [facility] malignant [facility]oplasm [facility] Start: 10-07-2025 Diabetes Screening Diabetes Screening [facility] Start: 09-14-2025 [facility] Start: 09-14-2025 Prostate specific antigen measurement Prostate Cancer Screening Discussion [facility] Start: 08-24-2024 DTaP/Tdap/Td vaccine (2 - Td) DTaP/Tdap/Td vaccine (2 - Td) [place], [place] Start: 08-24-2024 Tetanus vaccination [facility] Start: 04-22-2025 Urine microalbumin profile DTaP,Tdap,Td Vaccine (2 - Td or Tdap) [facility] Start: 01-04-2024 COVID-19 Vaccine ( season) COVID-19 Vaccine ( season) [facility] Start: 01-04-2024 Influenza vaccination Influenza Vaccine (#1) [facility] Start: 10-08-2023 Creatinine measurement Basic Metabolic Panel [facility] Start: 04-23-2023 Lipid screen Lipid screen [place], [place] Start: 01-03-2023 Covid-19 Vaccine ( season) Covid-19 Vaccine ( season) [facility] Start: 01-03-2023 Influenza vaccination Influenza Vaccine (#1) [facility] Start: 02-02-2022 Influenza vaccination Influenza Vaccine (#1) [facility] Start: 09-14-2021 Basic metabolic 2000 panel - Serum or Plasma Basic Metabolic Panel [facility] Start: 09-14-2021 Prostate specific antigen measurement Prostate Cancer Screening (shared decision making) [facility] Start: 12-03-2020 Influenza vaccination Influenza Vaccine (#1) [facility] Start: 04-23-2019 A1C test (Diabetic or Prediabetic) A1C test (Diabetic or Prediabetic) [place], [place] Start: 04-23-2019 Creatinine monitoring Creatinine monitoring [place], [place] Start: 04-23-2019 Potassium monitoring Potassium monitoring [place] Start: 01-03-2019 Influenza vaccination Flu vaccine (#1) [place] Start: 09-15-2017 End: 09-15-2017 Appointment Appointment [facility] Work Phone: Start: 2015 Measurement of occult blood in single stool specimen [facility] Start: 2015 Shingles Vaccine (1 of 2) Shingles Vaccine (1 of 2) [place] Start: 2015 Shingrix Vaccine (1 of 2) Shingrix Vaccine (1 of 2) [facility] Start: 2015 Varicella-zoster vaccine (product) Shingles (RZV) Vaccine (1 of 2) [facility] Start: 2010 Screening for malignant neoplasm of colon [facility] Start: 01-25-1984 Hepatitis A (HAV) Vaccine (optional start 19+ years) Hepatitis A (HAV) Vaccine (optional start 19+ years) [facility] Start: 01-25-1984 Hepatitis B vaccination Hepatitis B (HBV) Vaccine (1 of 3 - 19+ 3-dose series) [facility] Start: 01-25-1984 Hepatitis B Vaccine (1 of 3 - 19+ 3-dose series) Hepatitis B Vaccine (1 of 3 - 19+ 3-dose series) [facility] Start: 1983 Anxiety Screening Anxiety Screening [facility] Start: 1983 Depression Screening Depression Screening [facility] Start: 1983 Hepatitis C screening Hepatitis C Screening [facility] Start: 1983 HIV screening HIV Screening [facility] Start: 1970 COVID-19 Vaccine (1) COVID-19 Vaccine (1) [facility] Start: 1965 COVID-19 Vaccine (#1) COVID-19 Vaccine (#1) [facility] Start: 1965 Hepatitis B vaccination Hepatitis B (HBV) Vaccine (1 of 3 - 3-dose series) [facility] Immunizations Immunization Date Immunization Notes Care Provider Fa cili 04-23-2018 influenza, injectabl e, quadrivalent, preservative free [facility] 04-23-2018 Influenza, Quadv, 6 mo and older, IM, PF (Flulaval, Fluarix) [place], [place] 04-23-2018 influenza virus vaccine, unspecified formulation [facility] 03-16-2016 Influenza Vaccine, unspecified formulation [place], [place] 03-16-2016 influenza virus vaccine, unspecified formulation [facility] 08-24-2014 tetanus toxoid, redu sharmila diphtheria toxoid, and acellular pertussis vaccine, adsorbed [place], [place] No information available. Eun Higgins LPN [facility] Work Phone: Payers Date Payer Category Payer Self-pay 2019 Private Health Insurance 2019 Private Health Insurance [id number] 2019 Private Health Insurance [facility] PL[facility] xxxxxxxxx 2019-Present [phone] [address] [place] [address] xxxxxxxxx [id number] 1965 Unknown [id number] Unknown [id number] Social History Date Type Detail Facility Start: 09-15-2017 End: 09-15-2017 Assertion Unknown if ever smoked [facility] Work Phone: Start: 07-07-2019 End: 12-19-2021 Tobacco smoking status NHIS Never smoker [place], [place] Start: 09-22-2018 End: 07-07-2019 Alcohol intake Current drinker of alcohol (finding) [place] Start: 07-07-2019 History SDOH Alcohol Frequency 3 [place] Start: 07-07-2019 History SDOH Alcohol Std Drinks 1 [place] Start: 07-07-2019 History SDOH Financial 5 [place] Start: 07-07-2019 History SDOH Transpo rt Med 2 [place], [place] Start: 1965 Sex Assigned At Not on file M [place], [place] Start: 09-13-2020 End: 12-19-2021 Tobacco use and exposure Smokeless tobacco non-user [facility] Start: 09-22-2018 End: 09-13-2020 History of Social function [facility] Work Phone: Start: 09-22-2018 End: 09-13-2020 Tobacco use panel [facility] Work Phone: National Score (1-100), lower number is lower risk 23 [facility] Work Phone: Start: 1965 Sex Assigned At Male W [facility] Goals Date Patient Goal Desired Activity /State Personal health goal History of Present illness Narrative 12-01-2023 Vi Callejas RT(R) - 12/01/2023 12:00 PM EDT Note Date & Type Note Facility 12-01-2023 History of Presen t illness Narrative Radiology Service Progress Note PATIENT NAME: Zan Villeda DATE OF SERVICE: December 01, 2023 TIME: 12:15 PM PATIENT IDENTITY VERIFICATION COMPLETED USING TWO (2) IDENTIFIERS: Name and Date of confirmed by patient verbally. FALL SCREENING: Has the patient had 2 falls in the last year or 1 fall with injury or currently using an Ambulatory Assistive Device (Walker, Cane, Wheelchair, Crutches, etc.)? No PATIENT GENDER DATA: Male PATIENT RELEVANT IMPLANT DATA REVIEWED: Not Applicable PATIENT PRESENTS WITH AN IMPLANTABLE OR ATTACHED PRIMER WATERPROOFING MACHINE OPERATOR: No RADIOLOGY DEPARTMENT: General X-ray: Exam(s) Completed: Chest X-Ray PERIPHERAL IV DATA: Not applicable SIGNED BY: RT Ami(Ciara) December 01, 2023 12:15 PM documented in this encounter [facility] Progress note 12-01-2023 Note Date & Type Note Facility 12-01-2023 Note HNO ID: [id number] Author: VI CALLEJAS RT(Ciara) Service: ? Author Type: Technologist Type: Progress Notes Filed: 12/01/2023 12:15 Note Text: Radiology Service Progress Note PATIENT NAME: Zan Villeda DATE OF SERVICE: December 01, 2023 TIME: 12:15 PM PATIENT IDENTITY VERIFICATION COMPLETED USING TWO (2) IDENTIFIERS: Name and Date of confirmed by patient verbally. FALL SCREENING: Has the patient had 2 falls in the last year or 1 fall with injury or currently using an Ambulatory Assistive Device (Walker, Cane, Wheelchair, Crutches, etc.)? No PATIENT GENDER DATA: Male PATIENT RELEVANT IMPLANT DATA REVIEWED: Not Applicable PATIENT PRESENTS WITH AN IMPLANTABLE OR ATTACHED PRIMER WATERPROOFING MACHINE OPERATOR: No RADIOLOGY DEPARTMENT: General X-ray: Exam(s) Completed: Chest X-Ray PERIPHERAL IV DATA: Not applicable SIGNED BY: CAROLYN MuellerR) December 01, 2023 12:15 PM [facility] Note 07-25-2021 Telephone Encounter - Nieves Sanders - 07/25/2021 10:50 AM EDT Note Date & Type Note Facility 07-25-2021 Miscellaneous Notes Identification was verified by patient verbalizing his name and date of . Pt requesting refill on medication below. Please advice, Thank you documented in this encounter [facility] Evaluation note Note Date & Type Note Facility Evaluation note No assessment information availa ble [facility] Work Phone: Reason for referral (narrative) Note Date & Type Note Facility Reason for referral (narrative) No reason for referral information available [facility] Work Phone: Instructions Instruction Description Start Date CompletedPatient advised to follow-up with Primary Care Physician for BMI management. Advance Directives Documents on File Type Date Recorded Patient Career Resource Technician Expl anation Advance Directives and Living Will Power of Ultrasound Specialist Assessments There may be information available, but it has not been provided by the sender. Review of System There may be information available, but it has not been provided by the sender. Family History Relationship Condition Age at Onset Recorded Date/T jay jay Not Specified Parkinson's disease Unknown Summary Purpose Chief Complaint and Reason for Visit Chief Complaint Admit Date Elbow pain/skin tag October 05, 2024 4:40p m Additional Source Comments (unrecognized sect ion and content) No Status Records FoundNo Status Records FoundNo Status Records FoundNo Status Records FoundNo Status Records FoundNo Status Records Found INFORMATION SOURCE (unrecogn ized section and content) DATE CREATED AUTHOR 02/23/2018 [facility] DATE CREATED AUTHOR AUTHOR'S ORGANIZ ATION 10/04/2018 [facility] DATE CREATED AUTHOR AUTHOR'S ORGANIZ ATION 12/25/2021 [facility] DATE CREATED AUTHOR AUTHOR'S ORGANIZ ATION 10/12/2022 [facility] DATE CREATED AUTHOR AUTHOR'S ORGANIZ ATION 12/03/2023 [facility] DATE CREATED AUTHOR AUTHOR'S ORGANIZ ATION 12/15/2023 [facility] Reason for Visit (unrecogniz ed section and content) Reason Onset Date Comments Refill 07/25/2021 Reason Comments Refill Care Teams (unrecognized sec tion and content) Site Supervisor Relationship Specialty Start Date End Date Zan Herrera MD [address] [place] [address] PCP - General Family Medicine 12/15/20 Site Supervisor Relationship Specialty Start Date End Date Zan Herrera MD [address] [place] [address] PCP - General Family Medicine 12/15/20 Site Supervisor Relationship Specialty Start Date End Date Zan Herrera PCP - General Family Medicine 07/04/14 Site Supervisor Relationship Specialty Start Date End Date Zan Herrera MD [address] [place] [address] PCP - General Family Medicine 12/15/20 Team Status: Active Member Role Status Dates Anne-Marie Lujan NP ABSTRACTER-C Primary Care Provider Active Team Status: Inactive Member Role Status Dates Anne-Marie Lujan NP, ABSTRACTER-C Primary Care Provider Active Start: October 05, 2024 End: October 05, 2024 Anne-Marie Lujan NP ABSTRACTER-C Attending Provider Active Start: October 05, 2024 End: October 05, 2024 Anne-Marie Lujan NP, ABSTRACTER-C Referring Provider Active Start: October 05, 2024 End: October 05, 2024 Source Comments (unrecognize d section and content) In the event this informatio n is protected by the Federal Confidentiality of Alcohol and Drug Abuse Patient Records regulations: The Federal rules restrict any use of the information to criminally investigate or prosecute any alcohol or drug abuse patient.[facility] Goals (unrecognized section and content) Goals may be documented in a n alternate section FOR RECORDS PERTAINING TO PATIENTS WHO ARE OR HAVE BEEN ENROLLED IN A CHEMICAL DEPENDENCY/SUBSTANCEABUSE PROGRAM, SOME INFORMATION MAY BE OMITTED. This clinical summary was aggregated from multiple sources. Caution should be exercised in using it in the provision of clinical care. This summary normalizes information from multiple sources, and as a consequence, information in this document may materially change the coding, format and clinical context of patient data. In addition, data may be omitted in some cases. CLINICAL DECISIONS SHOULD BE BASED ON THE PRIMARY CLINICAL RECORDS. [facility] [employer] [facility]. provides no warranty or guarantee of the accuracy or completeness of information in this document.
[2025-01-06 22:41] LABS: Hematocrit 44.6 % (40-54); Hemoglobin 15.0 g/dL (13.0-16.5); Immature Granulocytes Count 0.030 X10^3/uL (0.0-0.0); Mean Corp Hgb Conc 33.6 g/dL (32-36); Mean Corpuscular Volume 91.2 fL (80-94); Mean Platelet Vol. 11.0 fl (6.2-12.0); NRBC Flagged by Analyzer 0 % (0-5); Platelet Count 246 K/mm3 (150-450); RBC Distribution Width CV 13.1 % (11.6-14.6); RBC Distribution Width SD 43.3 fl (35.1-43.9); Red Blood Count 4.89 M/mm3 (4.6-6.2); White Blood Count 8.5 K/mm3 (4.4-11.0)
[2025-01-06 22:59] LABS: AST(SGOT) 43 U/L (<=37); Alanine Aminotransfer ALT/SGPT 54 U/L (<=46); Albumin, Serum 4.1 g/dL (3.5-5.0); Alkaline Phosphatase 43 U/L (40-129); Anion Gap 13 (5-15); BUN 18 mg/dL (4-19); BUN/Creat Ratio 20.3 RATIO (10-20); Calcium,Total 9.4 mg/dL (7.6-11.0); Carbon Dioxide 23.4 mmol/L (21.0-32.0); Chloride 104 mmol/L (98-108); Cholesterol 141 mg/dL (<=200); Globulin 2.9 g/dL (2.2-4.2); Glucose 93 mg/dL (70-99); Low Density Lipoprotein Calc. 89 mg/dL; PSA,Total - Annual Screen 1.32 ng/mL (0.02-4.00); Potassium 4.3 mmol/L (3.3-5.1); Triglycerides 101 mg/dL; Very Low Density Lipoprotein 20 mg/dL (5-40); cholesterol:hdl ratio screen 4.45
== END | disposition home or self-care (01) ==
PROVIDERS: PCP Nurse Practitioner; Referring Provider Nurse Practitioner; Visit Provider Nurse Practitioner
DX: Z00.00 Encounter for general adult medical examination without abnormal findings (principal); R79.89 Other specified abnormal findings of blood chemistry; Z53.20 Procedure and treatment not carried out because of patient's decision for unspecified reasons; I10 Essential (primary) hypertension
CPT/HCPCS: 80053; 80061; 84153; 84403; 84443; 85025; G0103